=== PATIENT | male | born 1950 | race Caucasian/White ===

== ENCOUNTER → 2023-08-02 12:56 | Outpatient (REF) | payer OTHER, SELFPAY | LOC: MRI 3T 12:56 | PROVIDERS: ATTENDING PHYSICIAN Specialist; FAMILY PHYSICIAN Family Medicine | DX: R97.20 Elevated prostate specific antigen [PSA] (principal) | CPT/HCPCS: 72197; A9575 ==

== ENCOUNTER → 2023-12-18 12:16 | Outpatient (REF) | payer OTHER, SELFPAY ==
[2023-12-18 15:54] LABS: Blood Urea Nitrogen 11 mg/dl (9-20); Calcium 9.6 mg/dl (8.4-10.2); Carbon Dioxide 38 mmol/L (22-30); Chloride 92 mmol/L (98-107); Glucose 119 mg/dl (70-99); Potassium 4.3 mmol/L (3.5-5.1); Sodium 140 mmol/L (135-145); eGFR > 60.00
[2023-12-18 16:30] LABS: CEA 2.05 ng/ml
== END ==
LOC: HWLAB 12:16
PROVIDERS: ATTENDING PHYSICIAN Internal Medicine Cardiovascular Disease; FAMILY PHYSICIAN Family Medicine; OTHER PHYSICIAN Surgery; REFERRING PHYSICIAN Specialist
DX: I50.33 Acute on chronic diastolic (congestive) heart failure (principal); I48.21 Permanent atrial fibrillation; C61 Malignant neoplasm of prostate
CPT/HCPCS: 36415; 80048; 82378; 84153; 84403

== ENCOUNTER → 2023-12-19 12:03 | Outpatient (REF) | payer OTHER, SELFPAY | LOC: HWRAD 12:03 | PROVIDERS: ATTENDING PHYSICIAN Surgery; FAMILY PHYSICIAN Family Medicine | DX: Z85.038 Personal history of other malignant neoplasm of large intestine (principal) | CPT/HCPCS: 71260; 74177; Q9967 ==

== ENCOUNTER 2024-01-09 06:01 | Inpatient (IN) | payer OTHER, SELFPAY ==
[2024-01-09] VITALS (38 sets, daily range): BP systolic 30–138; BP diastolic 57–98; PULSE 2–95
[2024-01-09 06:51] LABS: Hematocrit 34.9 % (39.0-52.0); Hemoglobin 11.3 g/dL (13.0-18.0); Mean Corp Hgb Conc. 32.4 g/dL (33.0-37.0); Mean Corpuscular Hgb 30.5 pg (27.0-31.0); Mean Corpuscular Volume 94.1 fL (80.0-94.0); Mean Platelet Volume 9.5 fL (7.4-10.4); Platelet Count 216 10^3/uL (130-400); Red Blood Cell Count 3.71 10^6/uL (4.70-6.10); Red Cell Dist. Width 13.7 % (11.5-14.5); White Blood Cell Count 7.8 10^3/uL (4.8-10.8)
[2024-01-09] MEDS: TYLENOL 1000 MG PO (07:12)
[2024-01-09] MEDS: DILAUDID 0.25 MG IV ×2 (11:18→12:30)
[2024-01-09 12:12] LABS: B.E. 4.2 mmol/L; HCO3 32.2 mmol/L (21-28); O2 Saturation % 96.6 % (94-98); PCO2 64 mmHg (35-48); PO2 88 mmHg (83-108); pH 7.31 (7.35-7.45)
--- NOTE | 2024-01-09 12:47 | W.PN.CARDCBS ---
Addendum entered and electronically signed by Daniel Puente DO 01/09/24 18:29:
I saw and examined the patient.
The Manager General's note was reviewed and I agree with the note.
Comment:
Plan:
He is s/p robotic assisted left nephrectomy 01/09/2024. Post op in PACU he had hypoxia and was started on Bipap with improvement. He has hx of home O2 2-3 L n/c.
HR and bp are stable
He remains compensated from a cardiac standpoint.
Perm aFib. Check EKG
Check echo as last echo was in 2021.
Check chest xray
Resume anticoagulation once ok with urology
Agree with IMU.
Discussed with hospitalist and PACU nursing including A-line.
Original Note:
Today's Communication / Plan
-
check EKG
check echo
check CXR
wean off bipap as able
resume eliquis when ok from surgical standpoint
Impression / Plan
-
Please refer to office note dated 01/04/24
Primary French Comber: Dr. Rodrigez
Assessment:
L renal mass s/p robotic assisted L nephrectomy 01/09/24
Chronic HFpEF
Pulmonary hypertension
COPD on chronic oxygen dependence
Permanent atrial fibrillation
Chronic OAC with eliquis
HTN
HLD
Chronic anemia
Obesity
history of colon cancer s/p colectomy 10/2021
Depression/anxiety
ECHO 10/2021: Definity contrast was used, EF 50 to 55%, no regional wall motion abnormalities, posterior MAC, trace MR, mildly dilated LA, mild TR, PAP 56 mmHg, severely dilated right atrium, mildly enlarged RV size
Plan:
-Patient underwent robotic assisted left nephrectomy 01/09/2024. Postoperatively in PACU, patient was noted to have desaturations into the 80s even on his baseline 2 to 3 L nasal cannula. He was placed on BiPAP with improvement. Cardiology
consulted for postoperative management
-Wean off BiPAP as able
-Remains in sinus rhythm on review of telemetry. check post op EKG
-Blood pressure stable
-He reports recent weight gain as an outpatient due to poor dietary habits, however denies lower extremity edema or shortness of breath prior to admission. Follow volume status. On Bumex 2 mg p.o. twice daily prior to admission. Check chest x-ray
-Last echo from 2021 as above. Will repeat
-Repeat labs pending. Hemoglobin 11.3 this morning. Outpatient Eliquis on hold. Resume when safe from surgical standpoint.
-May opt to keep a line in place to follow serial ABGs for now
-Continue postoperative care
-Discussed with PACU nursing
Progress Note - French Comber
Subjective
Date of Service: January 09, 2024
no CP. reports breathing improved on BIPAP
Objective
Labs:
Labs
Hgb 11.3 g/dL (13.0-18.0) L 01/09/24 06:37
Hct 34.9 % (39.0-52.0) L 01/09/24 06:37
Plt Count 216 10^3/uL (130-400) 01/09/24 06:37
Vital Signs and I&O:
Vital Signs
Temp Pulse Resp BP Pulse Ox
98.1 F 75 8 117/63 97
01/09/24 10:17 01/09/24 12:45 01/09/24 12:45 01/09/24 12:45 01/09/24 12:45
Vital Signs
Temp Pulse Resp BP Pulse Ox
98.1 F 75 8 117/63 97
01/09/24 10:17 01/09/24 12:45 01/09/24 12:45 01/09/24 12:45 01/09/24 12:45
Intake & Output
1101/08/24 01/09/24 01/10/24
07:59 07:59 07:59 07:59
Output Total 250 / 250
Balance -250 / -250
Physical Exam
Physical Exam
GEN: No distress, awake, lethargic, oriented x3. on bipap. obese
HEENT: supple, anicteric, mmm, eomi
LUNGS: CTA B/L anterolaterally, no wheezes
CV: Reg, S1/S2, no murmur
ABD: soft, BS+, NT/ND
EXT: No cyanosis, clubbing, edema
NEURO: Gross non-focal
SKIN: Warm, pink, dry. No rash
--- NOTE | 2024-01-09 12:58 | W.IMMPOSTOP ---
Surgical Immed Post Op Note
-
Primary Surgeon: Hiro
Pre-op Diagnosis: Left Renal Mass c/w malignancy
Post-op Diagnosis: same
Procedure Performed: Left hand-assisted Laparoscopic Radical Nephrectomy
Anesthesia Type: gen + local
Specimen / Cultures: left kidney + contiguous tissues
Estimated Blood Loss: 175 ml
Complications: none
Operative Findings: large left kidney with lower pole mass; significant induration of perinephric adipose
Tubes: Amado; left retroperitoneal Rj drain to bulb suction
--- NOTE | 2024-01-09 12:58 | CON.HOSP ---
Family Physician
-
Family Physician: Genevieve Prince
Chief Complaint
-
Postoperative hypoxia
History of Present Illness
73-year-old male with a past medical history of colon cancer status post right colectomy, COPD, former smoker, chronic hypoxic respiratory failure on 2-3 L at baseline, CHF, atrial fibrillation on Eliquis, CAD, CKD, hypertension, and type 2 diabetes
who presents with postoperative hypoxia after undergoing a radical left nephrectomy for left renal mass consistent with malignancy. Nursing staff reports that patient was hypoxic postoperatively. He does have a history of known COPD, and requires
2-3 L at baseline at all times. Currently patient is lethargic and on Bipap. He denies shortness of breath, denies chest pain. No coughing, no wheezing. No fever, no nausea, no vomiting. No black or bloody stools. He follows with Dr. Maddy Frost.
Medical History
Past Medical History
Past Medical History: Reports Other
Additional Past Medical History:
Left renal mass consistent with malignancy status post left nephrectomy
Colon cancer status post right colectomy
Chronic hypoxic respiratory failure on 2-3 L
COPD, Former smoker
Chronic HFpEF
H/o improved NICM, EF 35% 2006 and improved to 50-55% by echo 11/25/20
Permanent afib since 2011 despite ablation in 2006
Chronic Eliquis OAC
H/o left Foot wound with maggot infestation 11/2020
CAD with luminal irregularities by cath 12/17/17
CKD 2
H/o NSVT associated with exercise 11/28/17 which prompted cardiac cath 12/17/17
HTN
Anemia
DM 2
Past Surgical History: Reports Other
Additional Past Surgical History:
Left nephrectomy 01/09/24
Right colectomy 11/08/2021
Aortobiliac arteriogram
Hiatal hernia repair
Social History
Tobacco: Former Smoker
Alcohol: None
Drug: Marijuana (CBD gummies)
Family History
Family History: Reviewed & Not Pertinent
Allergies / Home Medications
Allergies reflects when Allergies were last updated in [employer].
Home Medications with original date entered in [employer]
Allergy/Medication List:
Allergies
Allergy/AdvReac Type Severity Reaction Status Date / Time
Penicillins Allergy Unknown Verified 01/09/24 06:31
Home Medications Table - record
�Medication �Instructions �Recorded �Confirmed
albuterol sulfate 90 mcg/actuation 2 puff inhalation R Q6 PRN 11/24/20 01/07/24
aerosol inhaler sob/wheezing
escitalopram oxalate 5 mg tablet 5 mg PO DAILY Mental Health/Anxiety 11/24/20 01/07/24
fluticasone fur. 100 mcg-umeclid 1 puff inhalation R DAILY 11/24/20 01/07/24
62.5 mcg-vilant 25 mcg Lung/breathing issues
inhalat.powder (Trelegy Ellipta)
metoprolol succinate 100 mg 100 mg PO QPM Heart 11/24/20 01/09/24
tablet,extended release 24 hr disease/condition
atorvastatin 20 mg tablet 20 mg PO QPM High cholesterol 11/01/21 01/09/24
losartan 25 mg tablet 25 mg PO QPM Blood pressure 11/01/21 01/09/24
trazodone 100 mg tablet 150 mg PO HS Mental Health/Anxiety 11/01/21 01/09/24
bumetanide 2 mg tablet 2 mg PO BID@0800,1600 #60 tabs 11/14/21 01/09/24
pantoprazole 40 mg tablet,delayed 40 mg PO DAILY #30 tabs 11/14/21 01/07/24
release
potassium chloride 20 mEq 20 meq PO BID #30 tabs 11/14/21 01/09/24
tablet,extended
release(part/cryst) (Klor-Con M)
Cbd Gummies 1 gummy PO PRN PRN pain 01/07/24 01/09/24
acetaminophen 325 mg tablet 650 mg PO Q4H PRN pain 01/07/24 01/07/24
(Tylenol)
apixaban 5 mg tablet (Eliquis) 5 mg PO BID 01/07/24 01/07/24
melatonin 10 mg tablet 10 mg PO HS Sleep 01/07/24 01/09/24
diltiazem HCl 120 mg 120 mg PO QPM 01/08/24 01/09/24
capsule,extended release 24 hr
docusate sodium 100 mg capsule 100 mg PO BID 01/08/24 01/09/24
(Colace)
tramadol 50 mg tablet 50 mg PO TID PRN severe pain #10 01/09/24
tabs
Review of Systems
-
A 12 point Review of Systems was completed except as noted: Yes
Physical Exam
Vital Signs
Vital Signs
Temp Pulse Resp BP Pulse Ox
98.1 F 75 8 117/63 97
01/09/24 10:17 01/09/24 12:45 01/09/24 12:45 01/09/24 12:45 01/09/24 12:45
Physical Exam
General: No Apparent Distress and Other (Obese, lethargic)
HEENT: Normocephalic, Anicteric and Moist Mucous Membranes
Respiratory: Other (Diminished breath sounds in all lung nichols, no wheezing noted)
Cardiac: Irregular Rhythm
GI: Soft, Non Tender and Normal Bowel Sounds
Musculoskeletal: No Clubbing and No Cyanosis
Neuro: Other (Lethargic, but arousable)
Laboratory Results
-
pH 7.31 (7.35-7.45) L 01/09/24 11:59
pCO2 64 mmHg (35-48) H 01/09/24 11:59
pO2 88 mmHg (83-108) 01/09/24 11:59
HCO3 32.2 mmol/L (21-28) H 01/09/24 11:59
Impression / Plan
-
HPI: 73-year-old male with a past medical history of colon cancer status post right colectomy, COPD, former smoker, chronic hypoxic respiratory failure on 2-3 L at baseline, CHF, atrial fibrillation on Eliquis, CAD, CKD, hypertension, and type 2
diabetes who presents with postoperative hypoxia after undergoing a radical left nephrectomy for left renal mass consistent with malignancy. Nursing staff reports that patient was hypoxic postoperatively. He does have a history of known COPD, and
requires 2-3 L at baseline at all times. Currently patient is lethargic and on Bipap. He denies shortness of breath, denies chest pain. No coughing, no wheezing. No fever, no nausea, no vomiting. No black or bloody stools. He follows with
Castañeda Santosh.
#Acute on chronic hypoxic and hypercapnic respiratory failure
#COPD
#Probable restrictive lung disease
Suspect secondary to anesthesia, restrictive lung disease, with baseline COPD
Patient requires 2 to 3 L at baseline
Consult pulmonology, continue BiPAP, repeat ABGs in the morning
Patient not currently wheezing, defer to pulmonology regarding if steroids are indicated
#Left renal mass consistent with malignancy status post left nephrectomy 01/09/24
Plan of care as per primary, pain control, PT/OT, laxatives
Follow-up on pathology
#Chronic HFpEF
Patient Received 2 L of IV Fluids in the OR Today, will cap IVFs
Cardiology consulted, continue Bumex 2 mg p.o. twice daily
#Permanent afib since 2011 despite ablation in 2006
Cardiology consulted, continue diltiazem and metoprolol for rate control
Resume Eliquis when cleared by primary
#CAD
Continue statin, metoprolol, losartan
#Benign essential hypertension
Continue metoprolol, losartan, diltiazem
#Colon cancer status post right colectomy 11/09/2023
#History of diabetes
Check hemoglobin A1c
#GERD
Continue PPI
#Anxiety/depression
Continue SSRI, trazodone
#Obesity due to excess calories
Affects all aspects of care
DVT prophylaxis�SCDs
Full code
Discussed w/ pulm, cards, & nursing
Total time spent to see the patient on the floor, examine the patient, review data and lab results, discuss treatment plan with patient, nursing staff around 80 minutes.
[2024-01-09] MEDS: DILAUDID 0.5 MG IV ×2 (13:10→16:16)
[2024-01-09 13:43] LABS: % Basophils 0.1 % (0-2); % Immature Granulocytes 0.4 % (0-0.5); % Lymphocytes 1.9 % (20.5-51.1); % Monocytes 3.8 % (1.7-9.3); % Neutrophils 93.8 % (42.2-75.2); Absolute Immature Granulocytes 0.1 10^3/uL (0-0.05); Absolute Lymphocytes 0.3 10^3/uL (1.2-3.4); Absolute Monocytes 0.6 10^3/uL (0.1-0.6); Absolute Neutrophils 15.7 10^3/uL (1.4-6.5); Hematocrit 36.5 % (39.0-52.0); Hemoglobin 11.7 g/dL (13.0-18.0); Mean Corp Hgb Conc. 32.1 g/dL (33.0-37.0); Mean Corpuscular Hgb 30.4 pg (27.0-31.0); Mean Corpuscular Volume 94.8 fL (80.0-94.0); Mean Platelet Volume 9.4 fL (7.4-10.4); Nucleated Red Blood Cells % 0 % (-); Platelet Count 223 10^3/uL (130-400); Red Blood Cell Count 3.85 10^6/uL (4.70-6.10); Red Cell Dist. Width 13.6 % (11.5-14.5); White Blood Cell Count 16.7 10^3/uL (4.8-10.8)
[2024-01-09 13:57] LABS: Lactic Acid 0.7 mmol/L (0.7-2.0)
[2024-01-09 13:59] LABS: ALT (SGPT) 16 U/L (0-50); AST (SGOT) 21 U/L (17-59); Albumin 3.8 g/dl (3.5-5.0); Alkaline Phosphatase 79 U/L (38-126); Blood Urea Nitrogen 22 mg/dl (9-20); Calcium 8.3 mg/dl (8.4-10.2); Carbon Dioxide 35 mmol/L (22-30); Chloride 96 mmol/L (98-107); Estimated Creatinine Clearance 97 ml/min; Glucose 165 mg/dl (70-99); Sodium 139 mmol/L (135-145); Total Bilirubin 0.8 mg/dl (0.2-1.3); Total Protein 6.6 g/dl (6.3-8.2); eGFR > 60.00
--- NOTE | 2024-01-09 15:20 | SUR.PHASEI ---
pacu addendum - patient arrived in pacu on 10l simple mask - sats 85%, does not respond to voice - increase to 15l/m - positioned in high fowlers - stimulated to breath. history of O2 use at home and weakness on arrival to OR - could not transfer
self or hold head upright. Dr Mae called - and respiratory called with Bipap. With Bipap - patient's sat improved. Remains lethargic. questioned need for abg's, labs. Not at this time.
at 1120 - noted sudden drainage on left - filling JAXON and and drainage around back and saturating blue pad. dressing reiforced - Dr Bosch called - no new orders at this time. Dr Mae and Dr Bosch updated on resp status. Need for Bipap
- consults ordered for disposition of patient post pacu. At 1400 - await IMU bed. [place] discontinued at 1500. Sleeps unless stimulated to wake, then asks for pain med and mouth care.
--- NOTE | 2024-01-09 15:22 | CON.PUL ---
Consultation
Consultation Request
Date/Time Consultation Requested: 01/09/24
Date/Time Consultation Performed: 01/09/24
Performing Provider: Santosh
Reason for Consultation: Hypercarbia
Medical History
-
History of Present Illness:
Patient is a 73-year-old male with previous history of severe COPD, chronic hypoxic respiratory failure on O2, chronic A-fib, hypertension, diastolic heart failure presenting for elective nephrectomy for history of left renal mass. Underwent
procedure and postoperatively developed hypoxemia for which she was placed on BiPAP. ABG obtained indicating mild acute respiratory acidosis. He has evidence of obesity hypoventilation syndrome. He was told 2 years ago that he needed a sleep
study but did not follow-up. He is currently in PACU on BiPAP and tolerating device well.
Past Medical History
Past Medical History: Other (see list below)
Social History
Tobacco: Former Smoker
Alcohol: None
Drug: None
Family History
Family History: Reviewed & Not Pertinent
Allergies / Home Medications
Allergies
Allergy/AdvReac Type Severity Reaction Status Date / Time
Penicillins Allergy Unknown Verified 01/09/24 06:31
Home Medications
�Medication �Instructions �Recorded �Confirmed �Last Taken �Type
albuterol sulfate 90 mcg/actuation 2 puff inhalation R Q6 PRN 11/24/20 01/07/24 Unknown History
aerosol inhaler sob/wheezing
escitalopram oxalate 5 mg tablet 5 mg PO DAILY Mental Health/Anxiety 11/24/20 01/07/24 01/09/24 03:30 History
fluticasone fur. 100 mcg-umeclid 1 puff inhalation R DAILY 11/24/20 01/07/24 01/09/24 03:30 History
62.5 mcg-vilant 25 mcg Lung/breathing issues
inhalat.powder (Trelegy Ellipta)
metoprolol succinate 100 mg 100 mg PO QPM Heart 11/24/20 01/09/24 01/08/24 20:00 History
tablet,extended release 24 hr disease/condition
atorvastatin 20 mg tablet 20 mg PO QPM High cholesterol 11/01/21 01/09/24 01/08/24 18:00 History
losartan 25 mg tablet 25 mg PO QPM Blood pressure 11/01/21 01/09/24 01/08/24 20:00 History
trazodone 100 mg tablet 150 mg PO HS Mental Health/Anxiety 11/01/21 01/09/24 01/08/24 20:00 History
bumetanide 2 mg tablet 2 mg PO BID@0800,1600 #60 tabs 11/14/21 01/09/24 01/08/24 18:00 Rx
pantoprazole 40 mg tablet,delayed 40 mg PO DAILY #30 tabs 11/14/21 01/07/24 01/09/24 03:30 Rx
release
potassium chloride 20 mEq 20 meq PO BID #30 tabs 11/14/21 01/09/24 01/08/24 18:00 Rx
tablet,extended
release(part/cryst) (Klor-Con M)
Cbd Gummies 1 gummy PO PRN PRN pain 01/07/24 01/09/24 01/08/24 20:00 History
acetaminophen 325 mg tablet 650 mg PO Q4H PRN pain 01/07/24 01/07/24 Unknown History
(Tylenol)
apixaban 5 mg tablet (Eliquis) 5 mg PO BID 01/07/24 01/07/24 01/06/24 20:00 History
melatonin 10 mg tablet 10 mg PO HS Sleep 01/07/24 01/09/24 01/08/24 20:00 History
diltiazem HCl 120 mg 120 mg PO QPM 01/08/24 01/09/24 01/08/24 20:00 History
capsule,extended release 24 hr
docusate sodium 100 mg capsule 100 mg PO BID 01/08/24 01/09/24 01/08/24 18:00 History
(Colace)
tramadol 50 mg tablet 50 mg PO TID PRN severe pain #10 01/09/24 Unknown Rx
tabs
Review of Systems
-
History Source: Patient
All other systems: Negative unless noted
Vitals / Labs / Diagnostic Testing
Vital Signs
Temp Pulse Resp BP Pulse Ox
97 F 97 24 116/75 97
01/09/24 14:00 01/09/24 15:15 01/09/24 15:15 01/09/24 15:00 01/09/24 15:15
Lab Data
01/09/24 16:00
01/09/24 16:00
Laboratory Results
01/09/24
11:59
pH 7.31 L
pCO2 64 H
pO2 88
HCO3 32.2 H
O2 Delivery Level
Diagnostic Testing:
Physical Exam
-
HEENT: Normocephalic, Anicteric and Moist Mucous Membranes
Cardiovascular: S1/S2 and Regular Rhythm
Respiratory: Clear and Non-Labored Respirations
GI: Soft, Non Distended and Non Tender
Neurology: Awake, Alert, Oriented and No Motor Deficits
Skin: Warm, Dry and Good Color
General: Comfortable and Other (NAD)
Assessment
-
Patient is a 73-year-old male with previous history of severe COPD, chronic hypoxic respiratory failure on O2, chronic A-fib, hypertension, diastolic heart failure presenting for elective nephrectomy for history of left renal mass. Underwent
procedure and postoperatively developed hypoxemia for which she was placed on BiPAP. ABG obtained indicating mild acute respiratory acidosis. He has evidence of obesity hypoventilation syndrome. He was told 2 years ago that he needed a sleep
study but did not follow-up. He is currently in PACU on BiPAP and tolerating device well.
Acute on chronic hypoxic/hypercarbic respiratory failure
Suspect PRISCILLA/OHS
Likely with postoperative atelectasis
Renal mass status post elective nephrectomy 01/09/24
Leukocytosis
Hyperglycemia
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
Prostate Cancer
Anxiety
HTN
Depression
Chronic Anemia
Severe COPD/bronchitis
Currently on Trelegy, 12/2023-FEV1 0.95L 29%, FVC 1.47L 33%, ratio 65.
08/31/20 from OSH- FEV1 32%, FVC 40%, ratio 63. TLC 53%, DLCO 60%
Moderately severe RLD
Diastolic-CHF
A-Fib
PAD s/p Aorto-biliac arteriogram, LLE arteriogram 11/30/20
Osteoporosis
Rheumatoid arthritis
Colon cancer s/p Robotic Right Colectomy
Hiatal hernia repair
L knee injections x3
R knee injection
Left Carpal tunnel release 10/27/22
Suspected PRISCILLA, supposed to obtain sleep study/did not follow up
Obesity BMI 38
Plan
Seen in PACU
He is chronically on oxygen, notably on 2 L with exertion
He is currently placed on 8 L postoperatively, through BiPAP
This is likely due to pulmonary insufficiency/atelectasis post procedure
We will need to do IS, ambulation and wean off oxygen
Suspect PRISCILLA, was instructed to get sleep study 2 years prior but did not follow up
ABG showing pH 7.31/CO2 64 indicating OHS
Can continue BIPAP overnight
Repeat ABG in AM
We discussed need for OP testing and set up
Prior history of lung disease is noted including severe COPD on Trelegy
Prior PFTs reviewed indicating FEV1 of 29%
Resume home inhalers
He also has comorbid history of restrictive lung disease, diastolic heart failure
CXR/CT obtained indicating no acute findings, bibasilar atelectasis is present
Other imaging reviewed in past as well
Prior ECHO results are reviewed indicating stable function with moderate pulmonary hypertension
This has not been repeated since 2021
Cautious fluid administration, resumption of home diuretic
If stalling on his oxygen weaning, may consider cardiology input
Check proBNP
Weight loss measures recommended
Obesity likely contributing to respiratory symptoms
Will need outpatient pulmonary evaluation in our office at discharge
We will follow
Diagnostic Data
Chest X-Ray: 01/09/24-Bibasilar opacities which may represent atelectasis or potentially postprocedural change. No pneumothorax.
CT Scan: CAP 12/19/23- 1. Post colonic resection. No bowel obstruction. As above, fat attenuation structure in anterior right abdomen with surrounding soft tissue attenuation probably old fat necrosis or chronic partial omental infarct related to
previous surgery.
2. Heterogeneously enhancing left renal mass measuring up to 6.5 cm in diameter, highly suspicious for renal cell carcinoma. There are some mildly enlarged retroperitoneal lymph nodes as above, metastatic involvement cannot be excluded.
3. Elevation left hemidiaphragm with adjacent atelectatic change. Trace left pleural effusion.
4. Dilation of the main pulmonary artery as seen previously, question pulmonary hypertension.
5. Mild irregularity of the hepatic capsular contour and enlarged left lobe, early change of cirrhosis is a differential consideration. No specific findings suggestive of portal hypertension.
6. Cholelithiasis.
11/05/21- 1. Focal area of thickening involving the transverse colon, likely corresponding to the patient's known transverse colon mass. No mesenteric lymphadenopathy is appreciated.
2. No evidence of hepatic metastasis.
3. Groundglass nodule at the right lung apex, measuring 7 mm in diameter. No additional lung nodules are appreciated. This nodule is indeterminate, and should be followed with imaging.
4. Prominence of the main pulmonary trunk, suggestive of pulmonary arterial hypertension in the correct clinical setting.
5. Mild cardiomegaly. Moderate coronary arterial calcification. Please correlate with symptoms of and risk factors for coronary artery disease, with further workup as clinically appropriate.
6. Cholelithiasis without evidence of acute cholecystitis.
Echo: 11/07/21-Normal left ventricular size, wall thickness and systolic function. No regional wall motion abnormalities are seen. LV ejection fraction is 50-55% by Chandler's method of discs. Diastolic function indeterminate due to atrial
fibrillation. Definity contrast was used. Mitral valve opens normally. Posterior mitral annular calcification. Trace mitral regurgitation. Mildly dilated left atrium. Tricuspid valve opens normally. Mild tricuspid regurgitation. Estimated pulmonary
artery pressure of 56 mmHg assuming a right atrial pressure of 8 mmHg.Severely dilated right atrium. Mildly enlarged right ventricular size. Normal right ventricular systolic function. Since echocardiogram November 2020 which was reviewed, there is
no significant change.
PFT's 12/2023-- FEV1 0.95L 29%, FVC 1.47L 33%, ratio 65.
08/31/20 from OSH- FEV1 32%, FVC 40%, ratio 63. TLC 53%, DLCO 60%
6MWT 12/06/23- 6 minute walk test performed and reconfirmed his exertional hypoxemia. Desaturated to 85% after [address] and titrated to 2 L and maintained an oxygen saturation of 93-94%. Exertional tachycardia noted at 150-160 bpm.
Reports and relevant images were personally reviewed.
Total time spent on this consultation __76__ includes review of history, physical exam, medications, laboratory data, personal review of imaging, extensive review of outpatient records, discussion with care team and respiratory therapy.
--- NOTE | 2024-01-09 16:19 | SUR.PHASEI ---
patient sleeps unless disturbed, vss, wean BIPAP o2 to 4l/m. patient reluctant to move or have any activity. Strongly encouraged to move and work on activity and deep breathing. Medicated with Dilaudid 0.5mg IV for pain - sats do drop after
dilaudid - patient cautioned on use of narcotics. Patient states with rolled fist ' I would like to pop you.' Again explained need to NOT be sedentary
[2024-01-09] MEDS: BUMEX 2 MG PO (16:39)
--- NOTE | 2024-01-09 16:56 | SUR.PHASEI ---
off bipap to take meds, and sat drop to 82%, resumed - increase O2 briefly and now back to 4lm with bipap 15/2 and sats good, dressing continues to saturate at intervals with continuous drainage from JAXON.
--- NOTE | 2024-01-09 17:54 | SUR.PHASEI ---
transfering patient to IMU - with movement abd dressing saturated x2 again and drainage on blue pad - JAXON drain filling x2 with serosang. reinforced dressings removed - and new ABD's placed to reinforce. Jaxon emptied and compressed.
[2024-01-09 18:06] LABS: NT-proBNP 1140 pg/ml
[2024-01-09] MEDS: LIPITOR 20 MG PO (18:07)
[2024-01-09] MEDS: CARDIZEM CD 120 MG PO (18:07)
[2024-01-09] MEDS: TOPROL XL 100 MG PO (18:08)
[2024-01-09] MEDS: COZAAR 25 MG PO (18:08)
--- NOTE | 2024-01-09 18:32 | PTCARENOTE ---
Received patient on admission from PACU via bed with bipap in use; transferred to new bed x4 assist. RT accompanied and changed patient to 6L n/c once in new bed; she then weaned to current 4L n/c with POx 96%. Lungs diminished t/o; no c/o SOB.
Afib on monitor.
CURT emptied on arrival for 80ml blood; also had moderate amount of bloody drainage around curt site leaking onto bed. Dressing changed by [employer]ANCIAL [employer] OFFICER on arrival. Per FINANCIAL AIDS OFFICER, patient with drainage at curt site that was reinforced and total of 450ml emptied
while still in PACU. LUQ small abdominal dressing with drainage shadowing beyond marked area; new area outlined by this RN. FINANCIAL [employer] OFFICER notified Dr Bosch and Dr Page of continued drainage. She also notified Dr Varghese, forwarding this RN the
response: 'don't suspect any major bleeding but he had a massive tumor. can plan to reinforce dressing and drain as needed.' H&H order taken by FINANCIAL [employer] OFFICER and brought to IMU. A total of 170ml emptied on this unit so far. BP 127/73; HR 114. See MAR for
med administration.
[2024-01-09] MEDS: SYMBICORT 80/4.5 MCG INHALER INH (19:42)
[2024-01-09] MEDS: KCL 20 MEQ PO (20:30)
[2024-01-09] MEDS: COLACE 100 MG PO (20:31)
[2024-01-09] MEDS: SENOKOT-S 2 TABLET PO (20:31)
[2024-01-09 20:53] LABS: Hematocrit 40.3 % (39.0-52.0); Hemoglobin 12.7 g/dL (13.0-18.0)
[2024-01-09] MEDS: PERCOCET 5/325 2 TABLET PO (20:57)
[2024-01-09] MEDS: MELATONIN 10 MG PO (20:57)
[2024-01-09] MEDS: DESYREL 150 MG PO (21:10)
[2024-01-10] VITALS (22 sets, daily range): BP systolic 72–129; BP diastolic 49–91; PULSE 3–96
--- NOTE | 2024-01-10 02:06 | PTCARENOTE ---
Assumed care of patient overnight, received report from tin RN. Pt is currently on 4L O2 NC. O2 sat 93%. Lungs are diminished and coarse. Pt denies SOB. A-fib on tele. Surgical site dressing remains from [employer]IC[employer]CH [employer]PER[employer]. Added an ABD pad to under the
abdomen/abdominal fold due to moderate amount of drainage, no further drainage noted at this time. Left JAXON drain putting out large amounts of serosanguineous to sanguineus drainage. >300ml output thus far. Pt complained of 7/10 pain from the left
lower quadrant of abdomen and left upper quadrant. Administered ordered Percocet see MAR. Pt is now sleeping and appears to be resting comfortably in bed. Pt rings appropriately and call silva is within reach.
[2024-01-10] MEDS: PERCOCET 5/325 2 TABLET PO ×4 (04:16→23:28)
[2024-01-10 04:23] LABS: Mean Corp Hgb Conc. 32.4 g/dL (33.0-37.0); Mean Corpuscular Hgb 30.8 pg (27.0-31.0); Mean Corpuscular Volume 94.9 fL (80.0-94.0); Mean Platelet Volume 9.4 fL (7.4-10.4); Platelet Count 249 10^3/uL (130-400); Red Cell Dist. Width 13.7 % (11.5-14.5)
[2024-01-10 04:47] LABS: Blood Urea Nitrogen 24 mg/dl (9-20); Calcium 8.4 mg/dl (8.4-10.2); Carbon Dioxide 33 mmol/L (22-30); Chloride 95 mmol/L (98-107); Estimated Creatinine Clearance 73 ml/min; Glucose 193 mg/dl (70-99); Potassium 4.7 mmol/L (3.5-5.1); Sodium 138 mmol/L (135-145); eGFR > 60.00
[2024-01-10 05:03] LABS: B.E. 7.8 mmol/L; HCO3 34.5 mmol/L (21-28); O2 Saturation % 96.9 % (94-98); PCO2 57 mmHg (35-48); PO2 76 mmHg (83-108); pH 7.39 (7.35-7.45)
[2024-01-10 05:15] LABS: O2 Therapy Bipap
[2024-01-10] MEDS: SPIRIVA RESPIMAT 2.5 MCG 2 PUFF INH (07:25)
[2024-01-10] MEDS: SYMBICORT 80/4.5 MCG INHALER 2 PUFF INH ×2 (07:25→19:34)
--- NOTE | 2024-01-10 08:12 | W.PN.CARDCBS ---
Today's Communication / Plan
-
Improved off BiPAP, pulm evaluating. He has been lost to follow up with pulm regarding possible PRISCILLA.
Remains in perm AFib with stable HR and BP.
EKG is stable.
Cont outpt Bumex.
Chest xray Jan 08: bibasilar opacities which may represent atelectasis
Echo pending. Echo from Oct 2021 EF was preserved.
Impression / Plan
-
Please refer to office note dated 01/04/24
Primary Filling Technician: Dr. Rodrigez
Impression:
L renal mass s/p robotic assisted L nephrectomy 01/09/24
Chronic HFpEF
Pulmonary hypertension
COPD on chronic oxygen dependence
Permanent atrial fibrillation
Chronic OAC with eliquis
HTN
HLD
Chronic anemia
Obesity
history of colon cancer s/p colectomy 10/2021
Depression/anxiety
ECHO 10/2021: Definity contrast was used, EF 50 to 55%, no regional wall motion abnormalities, posterior MAC, trace MR, mildly dilated LA, mild TR, PAP 56 mmHg, severely dilated right atrium, mildly enlarged RV size
Plan:
-Patient underwent robotic assisted left nephrectomy 01/09/2024. Postoperatively in PACU, patient was noted to have desaturations into the 80s even on his baseline 2 to 3 L nasal cannula. He was placed on BiPAP with improvement. Cardiology
consulted for postoperative management
Improved off BiPAP, pulm evaluating. He has been lost to follow up with pulm regarding possible PRISCILLA.
Remains in perm AFib with stable HR and BP.
EKG is stable.
Cont outpt Bumex.
Chest xray Jan 08: bibasilar opacities which may represent atelectasis
Echo pending. Echo from Oct 2021 EF was preserved.
Cont post op care. H/H stable.
Progress Note - Filling Technician
Subjective
Date of Service: January 10, 2024
Pt seen and examined. No cp or dyspnea.
Objective
Labs:
01/10/24 04:12
01/10/24 04:12
Labs
Hgb 12.0 g/dL (13.0-18.0) L 01/10/24 04:12
Hct 37.0 % (39.0-52.0) L 01/10/24 04:12
Plt Count 249 10^3/uL (130-400) 01/10/24 04:12
Sodium 138 mmol/L (135-145) 01/10/24 04:12
Potassium 4.7 mmol/L (3.5-5.1) 01/10/24 04:12
BUN 24 mg/dl (9-20) H 01/10/24 04:12
Creatinine 1.2 mg/dL (0.7-1.3) 01/10/24 04:12
Glucose 193 mg/dl (70-99) H 01/10/24 04:12
Vital Signs and I&O:
Vital Signs
Temp Pulse Resp BP Pulse Ox
98.1 F 100 17 129/65 95
01/10/24 04:32 01/10/24 07:28 01/10/24 07:28 01/10/24 06:00 01/10/24 07:28
Vital Signs
Temp Pulse Resp BP Pulse Ox
98.1 F 100 17 129/65 95
01/10/24 04:32 01/10/24 07:28 01/10/24 07:28 01/10/24 06:00 01/10/24 07:28
Intake & Output
01/08/24 01/09/24 01/10/24 01/11/24
06:59 06:59 06:59 06:59
Intake Total 300 / 300
Output Total 2525 / 2525
Balance -2225 / -2225
Physical Exam
Physical Exam
General: No acute distress, AAOX3
Neck: Negative JVD
Heart: Irregularly irregular, Negative S3 positive S1/S2, Negative S4, No murmur
Lungs: CTA b/l, negative wheezes/rales/rhonchi
Abd: Morbid obesity. Positive BS, NT/ND, neg rebound/rigidity/guarding
Ext: Negative cyanosis/clubbing/edema
Neuro: nonfocal
[2024-01-10] MEDS: LEXAPRO 5 MG PO (08:50)
[2024-01-10] MEDS: SENOKOT-S 2 TABLET PO ×2 (08:50→20:20)
[2024-01-10] MEDS: KCL 20 MEQ PO (08:51)
[2024-01-10] MEDS: PROTONIX 40 MG PO (08:51)
[2024-01-10] MEDS: BUMEX 2 MG PO (08:51)
[2024-01-10] MEDS: COLACE 100 MG PO ×2 (08:51→20:20)
[2024-01-10] MEDS: MIRALAX 17 GRAMS PO (08:51)
--- NOTE | 2024-01-10 09:16 | W.PN.PUL3 ---
Today's Communication / Plan
-
doing well on BIPAP, repeat ABG improved
will arrange OP sleep study and set up
wean o2 to baseline
resume home inhalers
encourage OOB as tolerated
further postop management per team
discharge planning per team
Assessment
-
Patient is a 73-year-old male with previous history of severe COPD, chronic hypoxic respiratory failure on O2, chronic A-fib, hypertension, diastolic heart failure presenting for elective nephrectomy for history of left renal mass. Underwent
procedure and postoperatively developed hypoxemia for which she was placed on BiPAP. ABG obtained indicating mild acute respiratory acidosis. He has evidence of obesity hypoventilation syndrome. He was told 2 years ago that he needed a sleep
study but did not follow-up. He is currently in PACU on BiPAP and tolerating device well.
Acute on chronic hypoxic/hypercarbic respiratory failure
Suspect PRISCILLA/OHS
Likely with postoperative atelectasis
Renal mass status post elective nephrectomy 01/09/24
Leukocytosis
Hyperglycemia
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
Prostate Cancer
Anxiety
HTN
Depression
Chronic Anemia
Severe COPD/bronchitis
Currently on Trelegy, 12/2023-FEV1 0.95L 29%, FVC 1.47L 33%, ratio 65.
08/31/20 from OSH- FEV1 32%, FVC 40%, ratio 63. TLC 53%, DLCO 60%
Moderately severe RLD
Diastolic-CHF
A-Fib
PAD s/p Aorto-biliac arteriogram, LLE arteriogram 11/30/20
Osteoporosis
Rheumatoid arthritis
Colon cancer s/p Robotic Right Colectomy
Hiatal hernia repair
L knee injections x3
R knee injection
Left Carpal tunnel release 10/27/22
Suspected PRISCILLA, supposed to obtain sleep study/did not follow up
Obesity BMI 38
Plan
He is chronically on oxygen, notably on 2 L with exertion
He is currently placed on 8 L postoperatively, through BiPAP--wean down as tolerated
This is likely due to pulmonary insufficiency/atelectasis post procedure
Continue IS, ambulation and wean off oxygen
Suspect PRISCILLA, was instructed to get sleep study 2 years prior but did not follow up
ABG showing pH 7.31/CO2 64 indicating OHS
Can continue BIPAP overnight
Repeat ABG in AM improved, can repeat PRN
We discussed need for OP testing and set up--this will be arranged
Prior history of lung disease is noted including severe COPD on Trelegy
Prior PFTs reviewed indicating FEV1 of 29%
Resume home inhalers
He also has comorbid history of restrictive lung disease, diastolic heart failure
CXR/CT obtained indicating no acute findings, bibasilar atelectasis is present
Other imaging reviewed in past as well
Prior ECHO results are reviewed indicating stable function with moderate pulmonary hypertension
This has not been repeated since 2021
Cautious fluid administration, resumption of home diuretic
If stalling on his oxygen weaning, may consider cardiology input
proBNP--1140
Weight loss measures recommended
Obesity likely contributing to respiratory symptoms
Will need outpatient pulmonary evaluation in our office at discharge
D/c planning per team
Diagnostic Data
Chest X-Ray: 01/09/24-Bibasilar opacities which may represent atelectasis or potentially postprocedural change. No pneumothorax.
CT Scan: CAP 12/19/23- 1. Post colonic resection. No bowel obstruction. As above, fat attenuation structure in anterior right abdomen with surrounding soft tissue attenuation probably old fat necrosis or chronic partial omental infarct related to
previous surgery.
2. Heterogeneously enhancing left renal mass measuring up to 6.5 cm in diameter, highly suspicious for renal cell carcinoma. There are some mildly enlarged retroperitoneal lymph nodes as above, metastatic involvement cannot be excluded.
3. Elevation left hemidiaphragm with adjacent atelectatic change. Trace left pleural effusion.
4. Dilation of the main pulmonary artery as seen previously, question pulmonary hypertension.
5. Mild irregularity of the hepatic capsular contour and enlarged left lobe, early change of cirrhosis is a differential consideration. No specific findings suggestive of portal hypertension.
6. Cholelithiasis.
11/05/21- 1. Focal area of thickening involving the transverse colon, likely corresponding to the patient's known transverse colon mass. No mesenteric lymphadenopathy is appreciated.
2. No evidence of hepatic metastasis.
3. Groundglass nodule at the right lung apex, measuring 7 mm in diameter. No additional lung nodules are appreciated. This nodule is indeterminate, and should be followed with imaging.
4. Prominence of the main pulmonary trunk, suggestive of pulmonary arterial hypertension in the correct clinical setting.
5. Mild cardiomegaly. Moderate coronary arterial calcification. Please correlate with symptoms of and risk factors for coronary artery disease, with further workup as clinically appropriate.
6. Cholelithiasis without evidence of acute cholecystitis.
Echo: 11/07/21-Normal left ventricular size, wall thickness and systolic function. No regional wall motion abnormalities are seen. LV ejection fraction is 50-55% by Chandler's method of discs. Diastolic function indeterminate due to atrial
fibrillation. Definity contrast was used. Mitral valve opens normally. Posterior mitral annular calcification. Trace mitral regurgitation. Mildly dilated left atrium. Tricuspid valve opens normally. Mild tricuspid regurgitation. Estimated pulmonary
artery pressure of 56 mmHg assuming a right atrial pressure of 8 mmHg.Severely dilated right atrium. Mildly enlarged right ventricular size. Normal right ventricular systolic function. Since echocardiogram November 2020 which was reviewed, there is
no significant change.
PFT's 12/2023-- FEV1 0.95L 29%, FVC 1.47L 33%, ratio 65.
08/31/20 from OSH- FEV1 32%, FVC 40%, ratio 63. TLC 53%, DLCO 60%
6MWT 12/06/23- 6 minute walk test performed and reconfirmed his exertional hypoxemia. Desaturated to 85% after [address] and titrated to 2 L and maintained an oxygen saturation of 93-94%. Exertional tachycardia noted at 150-160 bpm.
Reports and relevant images were personally reviewed.
Total time spent on this encounter __51__ minutes which includes review of history, physical exam, medications, laboratory data, personal review of imaging, extensive review of outpatient records, discussion with care team and respiratory therapy.
Subjective Data
-
Date of Service:
Date of Service: January 10, 2024
Chief Complaint: Pulmonary Follow Up
Subjective:
No events ON, tolerated BIPAP
No new complaints
Objective Data
Data Reviewed
Vital Signs / I&O / Oxygen:
Vital Signs
Temp Pulse Resp BP Pulse Ox
98.6 F 88 13 113/66 96
01/10/24 07:29 01/10/24 08:51 01/10/24 08:00 01/10/24 08:51 01/10/24 08:00
Intake and Output
01/09/24 01/10/24 01/11/24
06:59 06:59 06:59
Intake Total 300 / 300
Output Total 2525 / 2525
Balance -2225 / -2225
SaO2 96
Nasal Cannula flow liters per 4
minute
Physical Exam
General: Comfortable and Other (NAD)
HEENT: Normocephalic, Anicteric and Moist Mucous Membranes
Cardiovascular: S1-S2, Regular Rhythm and Peripheral Edema (discoloration noted)
Respiratory: Clear and Non-Labored Respirations
GI: Soft, Non Distended and Non Tender
Neurology: Awake, Alert, Oriented and No Motor Deficits
Skin: Warm, Dry and Good Color
Labs/Micro/Reports
Lab Data
01/10/24 04:12
01/10/24 04:12
Laboratory Results
01/09/24 01/10/24
11:59 04:56
pH 7.31 L 7.39
pCO2 64 H 57 H
pO2 88 76 L
HCO3 32.2 H 34.5 H
O2 Delivery Level Bipap
--- NOTE | 2024-01-10 09:47 | W.PN.URO.CBU ---
Today's Communication / Plan
-
OOB
d/c Amado
appreciated Hospitalists' and Cardiologists' support
Assessment / Plan
-
stable
per RN, RP drain's recorded volumes are incorrect -- 'it was only 50 cc last shift . . . its been going down'
Diagnosis
-
Date of Service: January 10, 2024
-
Patient Diagnosis: Left Renal Mass s/p Hand-assisted laparoscopic radical nephrectomy
Post Op Day: 1
Subjective
-
'I feel good doc'
expected degree of abdominal pain
Objective
-
Vital Signs
Temp Pulse Resp BP Pulse Ox
98.6 F 88 13 113/66 96
01/10/24 07:29 01/10/24 08:51 01/10/24 08:00 01/10/24 08:51 01/10/24 08:00
Intake and Output
01/09/24 01/10/24 01/11/24
06:59 06:59 06:59
Intake Total 300 / 300
Output Total 2525 / 2525
Balance -2225 / -2225
Intake:
Oral fluids 100 / 100
IV fluids (Total) 200 / 200
normosol 200 / 200
Output:
Drain Output (Total) 1240 / 1240
Left Lower Abdomen Sharif- 1240 / 1240
Fowler
Urine, Amado 1285 / 1285
Laboratory Results
01/10/24 04:12
01/10/24 04:12
Physical Exam
-
General - well developed, well nourished, no acute distress
Genitalia - Amado draining agatha urine
Skin - warm & dry with no rash
Neuro - AOx3, no motor deficits
Extremities - no clubbing, no cyanosis, no edema
Drain: thinly bloody urine
Dressings- clean, dry, intact
[2024-01-10 11:56] LABS: Body Fluid Amylase 189 U/L
--- NOTE | 2024-01-10 12:06 | W.PN.HOSP.TC ---
Today's Communication/Plan
-
see bold
Assessment / Plan
Assessment / Plan
73-year-old male with a past medical history of colon cancer status post right colectomy, COPD, former smoker, chronic hypoxic respiratory failure on 2-3 L at baseline, CHF, atrial fibrillation on Eliquis, CAD, CKD, hypertension, and type 2 diabetes
who presents with postoperative hypoxia after undergoing a radical left nephrectomy for left renal mass consistent with malignancy. Nursing staff reports that patient was hypoxic postoperatively. He does have a history of known COPD, and requires
2-3 L at baseline at all times. Currently patient is lethargic and on Bipap. He denies shortness of breath, denies chest pain. No coughing, no wheezing. No fever, no nausea, no vomiting. No black or bloody stools. He follows with Dr. Maddy Frost.
#Acute on chronic hypoxemic and hypercapnic respiratory failure
#COPD
#Probable obesity hypoventilation syndrome
#Probable PRISCILLA
Suspect secondary to anesthesia, obesity hypoventilation syndrome, with baseline COPD
Patient requires 2 to 3 L at baseline
Appreciate pulmonology input, ABGs improved on BiPAP
Currently on 4 L of oxygen, wean as tolerated
Continue BiPAP at bedtime, patient needs to follow-up with pulmonology for sleep study
#Left renal mass consistent with malignancy status post left nephrectomy 01/09/24
#History of prostate cancer
Plan of care as per primary, pain control, PT/OT, laxatives
Follow-up on pathology
#Chronic HFpEF
Patient Received 2 L of IV Fluids in the OR Today, will cap IVFs
Cardiology consulted, continue Bumex 2 mg p.o. twice daily with hold parameters
#Permanent afib since 2011 despite ablation in 2006
Cardiology consulted, continue diltiazem and metoprolol for rate control with hold parameters
Resume Eliquis when cleared by primary
#Hypotension
Hold losartan
#CAD
Continue statin, metoprolol
#Benign essential hypertension
Continue metoprolol, diltiazem
Hold losartan
#Colon cancer status post right colectomy 11/09/2023
#History of diabetes
Check hemoglobin A1c
#GERD
Continue PPI
#Anxiety/depression
Continue SSRI, trazodone
#Obesity due to excess calories
Affects all aspects of care
DVT prophylaxis�SCDs
Full code
We will follow the patient along with you.
Total time spent to see the patient on the floor, examine the patient, review data and lab results, discuss treatment plan with patient, nursing staff around 51 minutes.
Physical Exam
General: Obese, no acute distress
HEENT: Normocephalic, Atraumatic, EOMI, MMM
Respiratory: Clear to Auscultation bilaterally
Cardiac: Normal S1/S2, Regular Rate and Rhythm
GI: Soft, distended, left flank tenderness noted, JAXNO drain with serosanguineous drainage
Extremities: No Clubbing, Cyanosis, or Edema
Neuro: Nonfocal/Grossly Intact
Psych: Calm, Cooperative
Anticipated Discharge: 24 - 48 hours
Subjective/Interval History
-
Date of Service: January 10, 2024
Patient reports that his left abdominal pain is 6/10. No shortness of breath. No lightheadedness, no dizziness. No chest pain. No fever, no vomiting.
Objective Data
-
Labs:
Laboratory Results
01/10/24 01/10/24
04:12 04:56
WBC 14.0 H
Hgb 12.0 L
Hct 37.0 L
Plt Count 249
HCO3 34.5 H
Sodium 138
Potassium 4.7
Chloride 95 L
Carbon Dioxide 33 H
BUN 24 H
Creatinine 1.2
Glucose 193 H
Calcium 8.4
Vital Signs:
Vital Signs
Temp Pulse Resp BP Pulse Ox
98.6 F 88 13 113/66 97
01/10/24 07:29 01/10/24 08:51 01/10/24 08:00 01/10/24 08:51 01/10/24 08:00
I&O
01/09/24 01/10/24 01/11/24
06:59 06:59 06:59
Intake Total 300 / 300
Output Total 5 / 252
Balance -2225 / -2225
--- NOTE | 2024-01-10 12:37 | PTCARENOTE ---
JAXON drain specimen sent to lab- lab will send out for lipase result (unable to do at this facility)
--- NOTE | 2024-01-10 12:40 | PTCARENOTE ---
BP 98/68 in bed- Sat up on side of bed, c/o some dizziness- sitting BP 107/68- oob to chair with assist 1 and RW. Unable to stand long enough to get standing BP.
--- NOTE | 2024-01-10 16:15 | PTCARENOTE ---
Patient stood and pivoted with RW back to bed from chair. Patient stated that he 'feels dizzy' and patient was pallor. Patients BP is 72/49 MAP of 58. After 1 minute of rest, patients BP 80/57 with MAP of 66. Dr. Rodriguez and Dr. Bosch made aware.
Orders to keep MAP > 65. BP rechecked and BP is 94/57 with MAP of 67. Patient stated that he 'doesn't feel dizzy anymore'. Care ongoing at this time.
[2024-01-10] MEDS: LIPITOR 20 MG PO (17:39)
[2024-01-10] MEDS: CARDIZEM CD 120 MG PO (17:40)
[2024-01-10] MEDS: TOPROL XL 100 MG PO (17:40)
--- NOTE | 2024-01-10 18:35 | PTCARENOTE ---
Patient AOx3. A fib with BBB on tele. Patient on 4L NC with SpO2 greater than 92%. Amado removed and patient DTV. Bladder scanned patient for 90. Encouraged patient to increase fluids. L side JAXON dressing changed due to being saturated with serosang
drainage. Patient OOB with assist x1. Call silva within reach, bed in lowest position, and wheels locked.
[2024-01-10] MEDS: MELATONIN 10 MG PO (20:20)
[2024-01-10] MEDS: DESYREL 150 MG PO (20:20)
[2024-01-11] VITALS (13 sets, daily range): BP systolic 90–117; BP diastolic 51–76; PULSE 80–84; O2SAT 97
--- NOTE | 2024-01-11 00:10 | PTCARENOTE ---
Received patient from previous RN. Patient is Aox3. Afib on monitor. Patient is on 4L NC. Patient had right nephrectomy with JAXON drain producing pink drainage. Patient is OOB to chair times 2 assist with rolling walker. Patient resting in chair with
call silva in reach.
[2024-01-11] MEDS: SYMBICORT 80/4.5 MCG INHALER 2 PUFF INH ×2 (07:31→20:15)
[2024-01-11] MEDS: SPIRIVA RESPIMAT 2.5 MCG 2 PUFF INH (07:31)
--- NOTE | 2024-01-11 08:48 | W.PN.URO.CBU ---
Today's Communication / Plan
-
stable
slow physiological recovery
JAXON drain -- diminishing output; Amylase level was not indicative of pancreatic leak yesterday; appearance suggests lymphatic + hemolyzing blood
Plan:
increase activity
keep drain for now
Assessment / Plan
-
stable
per RN, RP drain's recorded volumes are incorrect -- 'it was only 50 cc last shift . . . its been going down'
Diagnosis
-
Date of Service: January 11, 2024
-
Patient Diagnosis:
Post Op Day:
Patient Diagnosis: Left Renal Mass s/p Hand-assisted laparoscopic radical nephrectomy
Post Op Day: 2
Subjective
-
less pain
eating
OOB to lounger
Objective
-
Vital Signs
Temp Pulse Resp BP Pulse Ox
98.2 F 82 18 97/58 96
01/11/24 04:10 01/11/24 07:34 01/11/24 07:34 01/11/24 06:00 01/11/24 07:34
Intake and Output
01/10/24 01/11/24 01/12/24
06:59 06:59 06:59
Intake Total 300 / 300 960 / 960
Output Total 2525 / 2525 1000 / 1000
Balance -2225 / -2225 -40 / -40
Intake:
Oral fluids 100 / 100 960 / 960
IV fluids (Total) 200 / 200
normosol 200 / 200
Output:
Drain Output (Total) 1240 / 1240 550 / 550
Left Lower Abdomen Sharif- 1240 / 1240 550 / 550
Fowler
Urine, Amado 1285 / 1285 250 / 250
Urine, Voided 200 / 200
Laboratory Results
01/10/24 04:12
01/10/24 04:12
Physical Exam
-
General - no acute distress
Abdomen - JAXON with milky red fluid
Incisions - stapled, clean, dry
--- NOTE | 2024-01-11 08:54 | W.PN.HOSP.TC ---
Today's Communication/Plan
-
see bold
Assessment / Plan
Assessment / Plan
73-year-old male with a past medical history of colon cancer status post right colectomy, COPD, former smoker, chronic hypoxic respiratory failure on 2-3 L at baseline, CHF, atrial fibrillation on Eliquis, CAD, CKD, hypertension, and type 2 diabetes
who presents with postoperative hypoxia after undergoing a radical left nephrectomy for left renal mass consistent with malignancy. Nursing staff reports that patient was hypoxic postoperatively. He does have a history of known COPD, and requires
2-3 L at baseline at all times. Currently patient is lethargic and on Bipap. He denies shortness of breath, denies chest pain. No coughing, no wheezing. No fever, no nausea, no vomiting. No black or bloody stools. He follows with Dr. Maddy Frost.
#Acute on chronic hypoxemic and hypercapnic respiratory failure
#COPD
#Probable obesity hypoventilation syndrome
#Probable PRISCILLA
Suspect secondary to anesthesia, obesity hypoventilation syndrome, with baseline COPD
Patient requires 2 to 3 L at baseline
Appreciate pulmonology input, ABGs improved on BiPAP
Currently on 4 L of oxygen, wean as tolerated
Continue BiPAP at bedtime, patient needs to follow-up with pulmonology for sleep study
#Left renal mass consistent with malignancy status post left nephrectomy 01/09/24
#History of prostate cancer
Plan of care as per primary, pain control, PT/OT, laxatives
Follow-up on pathology
#Acute kidney injury
Creatinine 1.8 today, was 1.2
Hold Bumex, trend creatinine, no nephrotoxic drugs/NSAIDs
#Chronic HFpEF
Patient Received 2 L of IV Fluids in the OR Today, will cap IVFs
Cardiology consulted, hold Bumex secondary to VICKIE
#Permanent afib since 2011 despite ablation in 2006
Cardiology consulted, continue diltiazem and metoprolol for rate control with hold parameters
Resume Eliquis when cleared by primary
#Constipation
Increase laxatives, give Dulcolax suppository, may need enema
#Hypotension
Resolved with holding losartan
#CAD
Continue statin, metoprolol
#Benign essential hypertension
Continue metoprolol, diltiazem
Cardiology recommends permanently discontinuing losartan
#Colon cancer status post right colectomy 11/09/2023
#History of diabetes
Check hemoglobin A1c
#GERD
Continue PPI
#Anxiety/depression
Continue SSRI, trazodone
#Obesity due to excess calories
Affects all aspects of care
DVT prophylaxis�SCDs
Full code
Dispo - PT rec SNF
We will follow the patient along with you.
Total time spent to see the patient on the floor, examine the patient, review data and lab results, discuss treatment plan with patient, nursing staff around 52 minutes.
Physical Exam
General: Obese, no acute distress
HEENT: Normocephalic, Atraumatic, EOMI, MMM
Respiratory: Clear to Auscultation bilaterally
Cardiac: Normal S1/S2, Regular Rate and Rhythm
GI: Soft, distended, left flank tenderness noted, JAXON drain with serosanguineous drainage
Extremities: No Clubbing, Cyanosis, or Edema
Neuro: Nonfocal/Grossly Intact
Psych: Calm, Cooperative
Anticipated Discharge: > 48 hours
Subjective/Interval History
-
Date of Service: January 11, 2024
Patient reports feeling tired. His left flank pain is 7 out of 10 in intensity. He complains of constipation. No chest pain, no shortness of breath. No fever, no vomiting.
Objective Data
-
Vital Signs:
Vital Signs
Temp Pulse Resp BP Pulse Ox
98.2 F 82 18 97/58 96
01/11/24 04:10 01/11/24 07:34 01/11/24 07:34 01/11/24 06:00 01/11/24 07:34
I&O
01/10/24 01/11/24 01/12/24
06:59 06:59 06:59
Intake Total 300 / 300 960 / 960
Output Total 2525 / 2525 1000 / 1000
Balance -2225 / -2225 -40 / -40
--- NOTE | 2024-01-11 09:10 | W.PN.CARDCBS ---
Today's Communication / Plan
-
Overall looks good. Remains in rate controlled A-fib. Continue Toprol and diltiazem as blood pressure allows.
Would discontinue Cozaar as outpatient for now. Can reassess in the future.
Hemoglobin overall stable at 12. Hopefully restart Eliquis over next 24 to 48 hours.
Creatinine stable at 1.2. Continue p.o. Bumex.
Impression / Plan
-
Please refer to office note dated 01/04/24
Primary Orthopedics Teacher: Dr. Rodrigez
Impression:
L renal mass s/p robotic assisted L nephrectomy 01/09/24
Chronic HFpEF
Pulmonary hypertension
COPD on chronic oxygen dependence
Permanent atrial fibrillation
Chronic OAC with eliquis
HTN
HLD
Chronic anemia
Obesity
history of colon cancer s/p colectomy 10/2021
Depression/anxiety
ECHO 10/2021: Definity contrast was used, EF 50 to 55%, no regional wall motion abnormalities, posterior MAC, trace MR, mildly dilated LA, mild TR, PAP 56 mmHg, severely dilated right atrium, mildly enlarged RV size
Echo December 2023, EF 55 to 60%, mild LVH, mild TR with PA pressure 39
Plan:
-Patient underwent robotic assisted left nephrectomy 01/09/2024.
He continues to improve. Respiratory status is improving. Will continue CPAP at night.
Ventricular rates are overall stable. Will continue Toprol and diltiazem. Eventual restart Eliquis when okay with urology. Hopefully over the next 24 to 48 hours. Hemoglobin stable at 12.0
Would hold Cozaar as outpatient and stop for now. Would only continue Toprol and diltiazem upon discharge
Continue Bumex 2 mg p.o. twice daily. Weight is overall stable. Creatinine at 1.2. Continue to follow status post nephrectomy. His volume status is acceptable.
Chest xray Jan 08: bibasilar opacities which may represent atelectasis
Echo December 2023, EF 55 to 60% with PA pressure 39.
Cont post op care.
Progress Note - Orthopedics Teacher
Subjective
Date of Service: January 11, 2024
Overall feels well. Denies chest pains or shortness of breath. Minimal incisional pain.
Objective
Labs:
Labs
Hgb 12.0 g/dL (13.0-18.0) L 01/10/24 04:12
Hct 37.0 % (39.0-52.0) L 01/10/24 04:12
Plt Count 249 10^3/uL (130-400) 01/10/24 04:12
Sodium 138 mmol/L (135-145) 01/10/24 04:12
Potassium 4.7 mmol/L (3.5-5.1) 01/10/24 04:12
BUN 24 mg/dl (9-20) H 01/10/24 04:12
Creatinine 1.2 mg/dL (0.7-1.3) 01/10/24 04:12
Glucose 193 mg/dl (70-99) H 01/10/24 04:12
Vital Signs and I&O:
Vital Signs
Temp Pulse Resp BP Pulse Ox
98.2 F 82 18 97/58 96
01/11/24 04:10 01/11/24 07:34 01/11/24 07:34 01/11/24 06:00 01/11/24 07:34
Vital Signs
Temp Pulse Resp BP Pulse Ox
98.2 F 82 18 97/58 96
01/11/24 04:10 01/11/24 07:34 01/11/24 07:34 01/11/24 06:00 01/11/24 07:34
Intake & Output
01/09/24 01/10/24 01/11/24 01/12/24
06:59 06:59 06:59 06:59
Intake Total 300 / 300 960 / 960
Output Total 2525 / 2525 1000 / 1000
Balance -2225 / -2225 -40 / -40
Physical Exam
Physical Exam
GEN: No distress, awake, Ox3
HEENT: supple, anicteric, mmm
LUNGS: scatt rhonchi
CV: irreg, S1/S2, 1/6 syst LSB, no gallop
ABD: soft, BS+, NT/ND
EXT: trace edema
NEURO: Gross non-focal
SKIN: No rash
[2024-01-11 09:41] LABS: % Basophils 0.1 % (0-2); % Eosinophils 0.6 % (0-6); % Immature Granulocytes 0.4 % (0-0.5); % Lymphocytes 5.1 % (20.5-51.1); % Monocytes 11.6 % (1.7-9.3); % Neutrophils 82.2 % (42.2-75.2); Absolute Eosinophils 0.1 10^3/uL (0-0.7); Absolute Immature Granulocytes 0.1 10^3/uL (0-0.05); Absolute Lymphocytes 0.8 10^3/uL (1.2-3.4); Absolute Monocytes 1.7 10^3/uL (0.1-0.6); Absolute Neutrophils 12.1 10^3/uL (1.4-6.5); Hemoglobin 11.5 g/dL (13.0-18.0); Mean Corp Hgb Conc. 31.1 g/dL (33.0-37.0); Mean Corpuscular Hgb 30.3 pg (27.0-31.0); Mean Corpuscular Volume 97.6 fL (80.0-94.0); Mean Platelet Volume 9.5 fL (7.4-10.4); Nucleated Red Blood Cells % 0 % (-); Platelet Count 222 10^3/uL (130-400); Red Blood Cell Count 3.79 10^6/uL (4.70-6.10); Red Cell Dist. Width 13.7 % (11.5-14.5); White Blood Cell Count 14.7 10^3/uL (4.8-10.8)
[2024-01-11] MEDS: PERCOCET 5/325 2 TABLET PO ×2 (09:56→21:57)
[2024-01-11] MEDS: MIRALAX 17 GRAMS PO (09:57)
[2024-01-11] MEDS: SENOKOT-S 2 TABLET PO ×2 (09:58→20:22)
[2024-01-11] MEDS: LEXAPRO 5 MG PO (09:58)
[2024-01-11] MEDS: KCL 20 MEQ PO (09:58)
[2024-01-11] MEDS: BUMEX 2 MG PO (09:58)
[2024-01-11] MEDS: COLACE 100 MG PO ×2 (09:58→20:21)
[2024-01-11] MEDS: PROTONIX 40 MG PO (09:58)
[2024-01-11 10:06] LABS: Blood Urea Nitrogen 36 mg/dl (9-20); Calcium 8.6 mg/dl (8.4-10.2); Carbon Dioxide 34 mmol/L (22-30); Chloride 92 mmol/L (98-107); Estimated Creatinine Clearance 49 ml/min; Glucose 154 mg/dl (70-99); Magnesium 2.2 mg/dl (1.6-2.3); Phosphorus 4.5 mg/dl (2.5-4.5); Potassium 4.8 mmol/L (3.5-5.1); Sodium 137 mmol/L (135-145); eGFR 39.01
--- NOTE | 2024-01-11 11:05 | W.PN.PUL3 ---
Today's Communication / Plan
-
Remains on 4L NC, wean as tolerated to baseline
BIPAP continues at night, patient has started refusing now
Continue PT/OT, postop care
Can likely transfer to [facility]
OP FU recommended
Assessment
-
Patient is a 73-year-old male with previous history of severe COPD, chronic hypoxic respiratory failure on O2, chronic A-fib, hypertension, diastolic heart failure presenting for elective nephrectomy for history of left renal mass. Underwent
procedure and postoperatively developed hypoxemia for which she was placed on BiPAP. ABG obtained indicating mild acute respiratory acidosis. He has evidence of obesity hypoventilation syndrome. He was told 2 years ago that he needed a sleep
study but did not follow-up. He is currently in PACU on BiPAP and tolerating device well.
Acute on chronic hypoxic/hypercarbic respiratory failure
Suspect PRISCILLA/OHS
Likely with postoperative atelectasis
Renal mass status post elective nephrectomy 01/09/24
Leukocytosis
Hyperglycemia
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
Prostate Cancer
Anxiety
HTN
Depression
Chronic Anemia
Severe COPD/bronchitis
Currently on Trelegy, 12/2023-FEV1 0.95L 29%, FVC 1.47L 33%, ratio 65.
08/31/20 from OSH- FEV1 32%, FVC 40%, ratio 63. TLC 53%, DLCO 60%
Moderately severe RLD
Diastolic-CHF
A-Fib
PAD s/p Aorto-biliac arteriogram, LLE arteriogram 11/30/20
Osteoporosis
Rheumatoid arthritis
Colon cancer s/p Robotic Right Colectomy
Hiatal hernia repair
L knee injections x3
R knee injection
Left Carpal tunnel release 10/27/22
Suspected PRISCILLA, supposed to obtain sleep study/did not follow up
Obesity BMI 38
Plan
He is chronically on oxygen, notably on 2 L with exertion
Currently on 4L, wean as tolerated
This is likely due to pulmonary insufficiency/atelectasis post procedure
Continue IS, ambulation and wean off oxygen
Suspect PRISCILLA, was instructed to get sleep study 2 years prior but did not follow up
ABG showing pH 7.31/CO2 64 indicating OHS
Can continue BIPAP overnight
Repeat ABG in AM improved, can repeat PRN
We discussed need for OP testing and set up--this has been arranged as PSG/titration/immediate set up
He has been refusing now, I encouraged him to continue using nightly
Prior history of lung disease is noted including severe COPD on Trelegy
Prior PFTs reviewed indicating FEV1 of 29%
Resume home inhalers
He also has comorbid history of restrictive lung disease, diastolic heart failure
CXR/CT obtained indicating no acute findings, bibasilar atelectasis is present
Other imaging reviewed in past as well
Prior ECHO results are reviewed indicating stable function with moderate pulmonary hypertension
This has not been repeated since 2021
Cautious fluid administration, resumption of home diuretic
If stalling on his oxygen weaning, may consider cardiology input
proBNP--1140
Weight loss measures recommended
Obesity likely contributing to respiratory symptoms
Will need outpatient pulmonary evaluation in our office at discharge
D/c planning per team
Diagnostic Data
Chest X-Ray: 01/09/24-Bibasilar opacities which may represent atelectasis or potentially postprocedural change. No pneumothorax.
CT Scan: CAP 12/19/23- 1. Post colonic resection. No bowel obstruction. As above, fat attenuation structure in anterior right abdomen with surrounding soft tissue attenuation probably old fat necrosis or chronic partial omental infarct related to
previous surgery.
2. Heterogeneously enhancing left renal mass measuring up to 6.5 cm in diameter, highly suspicious for renal cell carcinoma. There are some mildly enlarged retroperitoneal lymph nodes as above, metastatic involvement cannot be excluded.
3. Elevation left hemidiaphragm with adjacent atelectatic change. Trace left pleural effusion.
4. Dilation of the main pulmonary artery as seen previously, question pulmonary hypertension.
5. Mild irregularity of the hepatic capsular contour and enlarged left lobe, early change of cirrhosis is a differential consideration. No specific findings suggestive of portal hypertension.
6. Cholelithiasis.
11/05/21- 1. Focal area of thickening involving the transverse colon, likely corresponding to the patient's known transverse colon mass. No mesenteric lymphadenopathy is appreciated.
2. No evidence of hepatic metastasis.
3. Groundglass nodule at the right lung apex, measuring 7 mm in diameter. No additional lung nodules are appreciated. This nodule is indeterminate, and should be followed with imaging.
4. Prominence of the main pulmonary trunk, suggestive of pulmonary arterial hypertension in the correct clinical setting.
5. Mild cardiomegaly. Moderate coronary arterial calcification. Please correlate with symptoms of and risk factors for coronary artery disease, with further workup as clinically appropriate.
6. Cholelithiasis without evidence of acute cholecystitis.
Echo: 11/07/21-Normal left ventricular size, wall thickness and systolic function. No regional wall motion abnormalities are seen. LV ejection fraction is 50-55% by Chandler's method of discs. Diastolic function indeterminate due to atrial
fibrillation. Definity contrast was used. Mitral valve opens normally. Posterior mitral annular calcification. Trace mitral regurgitation. Mildly dilated left atrium. Tricuspid valve opens normally. Mild tricuspid regurgitation. Estimated pulmonary
artery pressure of 56 mmHg assuming a right atrial pressure of 8 mmHg.Severely dilated right atrium. Mildly enlarged right ventricular size. Normal right ventricular systolic function. Since echocardiogram November 2020 which was reviewed, there is
no significant change.
PFT's 12/2023-- FEV1 0.95L 29%, FVC 1.47L 33%, ratio 65.
08/31/20 from OSH- FEV1 32%, FVC 40%, ratio 63. TLC 53%, DLCO 60%
6MWT 12/06/23- 6 minute walk test performed and reconfirmed his exertional hypoxemia. Desaturated to 85% after [address] and titrated to 2 L and maintained an oxygen saturation of 93-94%. Exertional tachycardia noted at 150-160 bpm.
Reports and relevant images were personally reviewed.
Total time spent on this encounter __51__ minutes which includes review of history, physical exam, medications, laboratory data, personal review of imaging, extensive review of outpatient records, discussion with care team and respiratory therapy.
Subjective Data
-
Date of Service:
Date of Service: January 11, 2024
Chief Complaint: Pulmonary Follow Up
Subjective:
No new events, stable
Has refused BIPAP recently despite known risk
Objective Data
Data Reviewed
Vital Signs / I&O / Oxygen:
Vital Signs
Temp Pulse Resp BP Pulse Ox
98.2 F 88 18 95/51 96
01/11/24 04:10 01/11/24 09:58 01/11/24 07:34 01/11/24 09:58 01/11/24 07:34
Intake and Output
01/10/24 01/11/24 01/12/24
06:59 06:59 06:59
Intake Total 300 / 300 960 / 960
Output Total 2525 / 2525 1000 / 1000
Balance -2225 / -2225 -40 / -40
SaO2 96
Nasal Cannula flow liters per 4
minute
Physical Exam
General: Comfortable and Other (NAD)
HEENT: Normocephalic, Anicteric and Moist Mucous Membranes
Cardiovascular: S1-S2, Regular Rhythm and Peripheral Edema (discoloration noted)
Respiratory: Clear and Non-Labored Respirations
GI: Soft, Non Distended and Non Tender
Neurology: Awake, Alert, Oriented and No Motor Deficits
Skin: Warm, Dry and Good Color
Labs/Micro/Reports
Lab Data
01/11/24 09:27
01/11/24 09:27
--- NOTE | 2024-01-11 13:20 | CM ---
Addendum entered by Lien Cruz RN 01/14/24 11:05:
Late Entry - Update for 01/11/24:
Received callback from family requesting a referral to [facility] in [facility] where patient had been previously- referral placed. They think patient will be in agreement with this plan.
Plan follow up with [facility] for acceptance.
Addendum entered by Lien Cruz RN 01/11/24 16:20:
Spoke with patient's brother Kevin and Fanta, sister in law, who was a SW;
the patient resides alone in a first floor apartment with 3 GENESIS.
He was independent in ADLs and ambulation using his RW, and able to shop for himself and drive.
DME - [facility]
VN - prior [facility]
SNF - [facility]
PCP - Abdullahi Jean-Baptiste at [facility]
Pharmacy - [facility]
The patient and family are interested in the patient going to [facility] at discharge.
Referral placed.
Plan follow up SNF referral.
Original Note:
Patient with Hx Colon cancer s/p right colectomy 11/09/2023 who underwent robotic assisted left nephrectomy 01/09/24. O2 4L. JAXON Drain. Regular diet. PT/OT recommend skilled rehab.
Met with patient, spoke with his brother Kevin and sister in law by phone; discussed short term SNF for rehab vs home with [facility], that he had service with previously. SNF list provided. Patient unsure if he wants to go to rehab and is
hoping his mobility will improve while he is here, and he can go home.
Plan follow up with patient and family re; SNF vs .
[2024-01-11] MEDS: DULCOLAX 10 MG RECTAL (13:31)
--- NOTE | 2024-01-11 18:13 | PTCARENOTE ---
Rec'd pt this AM. OOB to chair and BSC with 2 assist. bowel regime in place. very small BM post suppository. pt agrees to try enema in morning. understands he has to lay on his side in bed. vital signs stable. call silva in reach. Pt with poor
appetite but agrees to try dinner tonight.
[2024-01-11] MEDS: TOPROL XL 100 MG PO (18:33)
[2024-01-11] MEDS: CARDIZEM CD 120 MG PO (18:34)
[2024-01-11] MEDS: LIPITOR 20 MG PO (18:34)
[2024-01-11] MEDS: DESYREL 150 MG PO (20:22)
[2024-01-11] MEDS: MELATONIN 10 MG PO (20:22)
--- NOTE | 2024-01-11 22:25 | PTCARENOTE ---
Assumed care of patient. Patient OOB and in chair. Patient on 4L NC sating at 94%. Afib on monitor with a right bundle branch block. Patient has a left JAXON drain which is draining pink/red. Patient is a assist x2 with a rolling walker. Patient
resting in chair with call silva in reach.
[2024-01-12] VITALS (12 sets, daily range): BP systolic 91–137; BP diastolic 52–81
[2024-01-12 05:16] LABS: Hematocrit 36.1 % (39.0-52.0); Hemoglobin 11.2 g/dL (13.0-18.0); Mean Corpuscular Hgb 30.4 pg (27.0-31.0); Mean Corpuscular Volume 97.8 fL (80.0-94.0); Mean Platelet Volume 9.6 fL (7.4-10.4); Platelet Count 195 10^3/uL (130-400); Red Blood Cell Count 3.69 10^6/uL (4.70-6.10); Red Cell Dist. Width 13.4 % (11.5-14.5); White Blood Cell Count 13.3 10^3/uL (4.8-10.8)
[2024-01-12 05:37] LABS: Blood Urea Nitrogen 45 mg/dl (9-20); Calcium 8.8 mg/dl (8.4-10.2); Carbon Dioxide 31 mmol/L (22-30); Chloride 91 mmol/L (98-107); Estimated Creatinine Clearance 42 ml/min; Glucose 136 mg/dl (70-99); Potassium 5.2 mmol/L (3.5-5.1); Sodium 134 mmol/L (135-145); eGFR 32.42
[2024-01-12] MEDS: SPIRIVA RESPIMAT 2.5 MCG 2 PUFF INH (07:39)
[2024-01-12] MEDS: SYMBICORT 80/4.5 MCG INHALER 2 PUFF INH ×2 (07:40→18:37)
--- NOTE | 2024-01-12 08:15 | W.PN.HOSP.TC ---
Today's Communication/Plan
-
Milk of molasses enema
Assessment / Plan
Assessment / Plan
73-year-old male with a past medical history of colon cancer status post right colectomy, COPD, former smoker, chronic hypoxic respiratory failure on 2-3 L at baseline, CHF, atrial fibrillation on Eliquis, CAD, CKD, hypertension, and type 2 diabetes
who presents with postoperative hypoxia after undergoing a radical left nephrectomy for left renal mass consistent with malignancy. Nursing staff reports that patient was hypoxic postoperatively. He does have a history of known COPD, and requires
2-3 L at baseline at all times. Currently patient is lethargic and on Bipap. He denies shortness of breath, denies chest pain. No coughing, no wheezing. No fever, no nausea, no vomiting. No black or bloody stools. He follows with Dr. Maddy Frost.
#Acute on chronic hypoxemic and hypercapnic respiratory failure
#COPD
#Probable obesity hypoventilation syndrome
#Probable PRISCILLA
Suspect secondary to anesthesia, obesity hypoventilation syndrome, with baseline COPD
Patient requires 2 to 3 L at baseline
Appreciate pulmonology input, ABGs improved on BiPAP
Currently on 4 L of oxygen, wean as tolerated
Continue BiPAP at bedtime, patient needs to follow-up with pulmonology for sleep study
#Left renal mass consistent with malignancy status post left nephrectomy 01/09/24
#History of prostate cancer
Plan of care as per primary, pain control, PT/OT, laxatives
Follow-up on pathology
#Acute kidney injury
Creatinine 2.1, was 1.8, was 1.2
Hold Bumex, trend creatinine, no nephrotoxic drugs/NSAIDs
#Chronic HFpEF
Patient Received 2 L of IV Fluids in the OR Today, will cap IVFs
Cardiology consulted, hold Bumex secondary to VICKIE
#Permanent afib since 2011 despite ablation in 2006
Cardiology consulted, continue diltiazem and metoprolol for rate control with hold parameters
Resume Eliquis when cleared by primary
#Constipation
Enema today, continue laxatives
#Hyperkalemia
Lokelma x 1
#Hypotension
Resolved with holding losartan
#CAD
Continue statin, metoprolol
#Benign essential hypertension
Continue metoprolol, diltiazem
Cardiology recommends permanently discontinuing losartan
#Colon cancer status post right colectomy 11/09/2023
#History of diabetes
Hemoglobin A1c 6.2
#GERD
Continue PPI
#Anxiety/depression
Continue SSRI, trazodone
#Obesity due to excess calories
Affects all aspects of care
DVT prophylaxis�SCDs
Full code
Dispo - PT rec SNF
We will follow the patient along with you.
Total time spent to see the patient on the floor, examine the patient, review data and lab results, discuss treatment plan with patient, nursing staff around 51 minutes.
Physical Exam
General: Obese, no acute distress
HEENT: Normocephalic, Atraumatic, EOMI, MMM
Respiratory: Clear to Auscultation bilaterally
Cardiac: Normal S1/S2, Regular Rate and Rhythm
GI: Soft, distended, left flank tenderness noted, JAXON drain with serosanguineous drainage
Extremities: No Clubbing, Cyanosis, or Edema
Neuro: Nonfocal/Grossly Intact
Psych: Calm, Cooperative
Anticipated Discharge: > 48 hours
Subjective/Interval History
-
Date of Service: January 12, 2024
Patient complains of constipation. No bowel movement with Dulcolax. Continues to have left-sided abdominal pain from the surgery. No chest pain, no shortness of breath. No fever, no vomiting.
Objective Data
-
Labs:
Laboratory Results
01/12/24
04:46
WBC 13.3 H
Hgb 11.2 L
Hct 36.1 L
Plt Count 195
Sodium 134 L
Potassium 5.2 H
Chloride 91 L
Carbon Dioxide 31 H
BUN 45 H
Creatinine 2.1 H
Glucose 136 H
Calcium 8.8
Vital Signs:
Vital Signs
Temp Pulse Resp BP Pulse Ox
98 F 77 15 106/61 98
01/12/24 03:16 01/12/24 07:44 01/12/24 07:44 01/12/24 04:00 01/12/24 07:44
I&O
01/11/24 01/12/24 01/13/24
06:59 06:59 06:59
Intake Total 960 / 960
Output Total 1000 / 1000 643 / 643
Balance -40 / -40 -643 / -643
--- NOTE | 2024-01-12 08:19 | W.PN.CARDCBS ---
Today's Communication / Plan
-
Hold diuretic and ARB with rising cr
Cont post op care
Pulm toilet
Impression / Plan
-
.
Primary Learning Support Aide: Dr. Rodrigez
Impression:
L renal mass s/p robotic assisted L nephrectomy 01/09/24
Chronic HFpEF
Pulmonary hypertension
COPD on chronic oxygen dependence
Permanent atrial fibrillation
Chronic OAC with eliquis
HTN
HLD
Chronic anemia
Obesity
history of colon cancer s/p colectomy 10/2021
Depression/anxiety
ECHO 10/2021: Definity contrast was used, EF 50 to 55%, no regional wall motion abnormalities, posterior MAC, trace MR, mildly dilated LA, mild TR, PAP 56 mmHg, severely dilated right atrium, mildly enlarged RV size
Echo December 2023, EF 55 to 60%, mild LVH, mild TR with PA pressure 39
Plan:
-Patient underwent robotic assisted left nephrectomy 01/09/2024.
Cont post op care
Remains constipated and primary service working on his bowel regimen.
He has perm aFib and HR and bp stable on Toprol and Cardizem.
Resume Eliquis once ok with urology. Hemoglobin stable at 11.2
Cont pulm toilet. Encouraged to continue CPAP at night. He is not on CPAP at home.
Cont home O2.
With rising cr, cont to hold Cozaar and stop for now. Would only continue Toprol and diltiazem upon discharge
Bumex now on hold. He was on 2 mg BID. Wt is overall stable. Cr 2.1 on Jan 11.
Chest xray Jan 08: bibasilar opacities which may represent atelectasis
Echo December 2023, EF 55 to 60% with PA pressure 39.
Discussed with nursing.
Progress Note - Learning Support Aide
Subjective
Date of Service: January 12, 2024
Pt seen and examined. No cp. He states he has chronic dyspnea. Still with constipation
Objective
Labs:
01/12/24 04:46
01/12/24 04:46
Labs
Hgb 11.2 g/dL (13.0-18.0) L 01/12/24 04:46
Hct 36.1 % (39.0-52.0) L 01/12/24 04:46
Plt Count 195 10^3/uL (130-400) 01/12/24 04:46
Sodium 134 mmol/L (135-145) L 01/12/24 04:46
Potassium 5.2 mmol/L (3.5-5.1) H 01/12/24 04:46
BUN 45 mg/dl (9-20) H 01/12/24 04:46
Creatinine 2.1 mg/dL (0.7-1.3) H 01/12/24 04:46
Glucose 136 mg/dl (70-99) H 01/12/24 04:46
Vital Signs and I&O:
Vital Signs
Temp Pulse Resp BP Pulse Ox
98 F 77 15 106/61 98
01/12/24 03:16 01/12/24 07:44 01/12/24 07:44 01/12/24 04:00 01/12/24 07:44
Vital Signs
Temp Pulse Resp BP Pulse Ox
98 F 77 15 106/61 98
01/12/24 03:16 01/12/24 07:44 01/12/24 07:44 01/12/24 04:00 01/12/24 07:44
Intake & Output
01/10/24 01/11/24 01/12/24 01/13/24
06:59 06:59 06:59 06:59
Intake Total 300 / 300 960 / 960
Output Total 2525 / 2525 1000 / 1000 643 / 643
Balance -2225 / -2225 -40 / -40 -643 / -643
Physical Exam
Physical Exam
General: No acute distress, AAOX3
Neck: Negative JVD
Heart: Irregularly irregular, Negative S3 positive S1/S2, Negative S4, No murmur
Lungs: CTA b/l, negative wheezes/rales/rhonchi
Abd: Morbid obesity. Positive BS, NT/ND, neg rebound/rigidity/guarding
Ext: Negative cyanosis/clubbing/edema
Neuro: nonfocal
[2024-01-12] MEDS: COLACE PO (08:30)
[2024-01-12] MEDS: SENOKOT-S PO (08:30)
[2024-01-12] MEDS: MIRALAX 17 GRAMS PO (08:30)
[2024-01-12] MEDS: PROTONIX PO (08:30)
[2024-01-12] MEDS: LEXAPRO 5 MG PO (08:30)
[2024-01-12] MEDS: DUPHALAC/CHRONULAC 20 GRAMS PO ×2 (08:41→20:16)
[2024-01-12] MEDS: PROTONIX 40 MG PO (08:41)
[2024-01-12] MEDS: COLACE 100 MG PO ×2 (08:41→20:16)
[2024-01-12] MEDS: SENOKOT-S 2 TABLET PO ×2 (08:41→20:15)
[2024-01-12] MEDS: LOKELMA 10 GRAM PO (10:58)
[2024-01-12 11:07] LABS: Glycohemoglobin (HgbA1c) 6.2 % (4.0-5.6)
--- NOTE | 2024-01-12 11:58 | W.PN.PUL.V3 ---
Today's Communication / Plan
-
Encouraged PAP
Incentive spirometry
Mucus clearing devices
Diuresis on hold
Outpatient sleep disordered breathing/pulmonary follow-up
Assessment
-
Patient is a 73-year-old male with previous history of severe COPD, chronic hypoxic respiratory failure on O2, chronic A-fib, hypertension, diastolic heart failure presenting for elective nephrectomy for history of left renal mass. Underwent
procedure and postoperatively developed hypoxemia for which she was placed on BiPAP. ABG obtained indicating mild acute respiratory acidosis. He has evidence of obesity hypoventilation syndrome. He was told 2 years ago that he needed a sleep
study but did not follow-up. He is currently in PACU on BiPAP and tolerating device well.
Acute on chronic hypoxic/hypercarbic respiratory failure
Suspect PRISCILLA/OHS
Likely with postoperative atelectasis
Renal mass status post elective nephrectomy 01/09/24
Leukocytosis
Hyperglycemia
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
Prostate Cancer
Anxiety
HTN
Depression
Chronic Anemia
Severe COPD/bronchitis
Currently on Trelegy, 12/2023-FEV1 0.95L 29%, FVC 1.47L 33%, ratio 65.
08/31/20 from OSH- FEV1 32%, FVC 40%, ratio 63. TLC 53%, DLCO 60%
Moderately severe RLD
Diastolic-CHF
A-Fib
PAD s/p Aorto-biliac arteriogram, LLE arteriogram 11/30/20
Osteoporosis
Rheumatoid arthritis
Colon cancer s/p Robotic Right Colectomy
Hiatal hernia repair
L knee injections x3
R knee injection
Left Carpal tunnel release 10/27/22
Suspected PRISCILLA, supposed to obtain sleep study/did not follow up
Obesity BMI 38
Plan
Postoperative hypoxemia is likely due to pulmonary insufficiency/atelectasis post procedure
Incentive spirometry
Aspiration precautionsRespiratory status is relatively stable
Continue supplemental oxygen-attempt to wean-he is usually on 2 L with exertion
Strongly suspect PRISCILLA or obesity hypoventilation syndrome, was instructed to get sleep study 2 years prior but did not follow up
ABG showing pH 7.31/CO2 64 indicating OHS
Continue BIPAP overnight as tolerated
We discussed need for OP testing and set up--this has been arranged as PSG/titration/immediate set up
He has been refusing now-we encouraged him to continue using nightly
Prior history of lung disease is noted including severe COPD on Trelegy
Prior PFTs reviewed indicating FEV1 of 29%
Resume home inhalers
He also has comorbid history of restrictive lung disease, diastolic heart failure
Prior ECHO results are reviewed indicating stable function with moderate pulmonary hypertension
This has not been repeated since 2021
Cautious fluid administration, resumption of home diuretic
If stalling on his oxygen weaning, may consider cardiology input
proBNP--1140
Cardiology following-reviewed with them
Weight loss measures recommended
Obesity likely contributing to respiratory symptoms
DVT prophylaxis recommended
GI prophylaxis-on pantoprazole
Nutrition
Physical therapy
Reviewed with nursing
Will need outpatient pulmonary evaluation in our office at discharge
Diagnostic Data
Chest X-Ray: 01/09/24-Bibasilar opacities which may represent atelectasis or potentially postprocedural change. No pneumothorax.
CT Scan: [facility] 12/19/23- 1. Post colonic resection. No bowel obstruction. As above, fat attenuation structure in anterior right abdomen with surrounding soft tissue attenuation probably old fat necrosis or chronic partial omental infarct related to
previous surgery.
2. Heterogeneously enhancing left renal mass measuring up to 6.5 cm in diameter, highly suspicious for renal cell carcinoma. There are some mildly enlarged retroperitoneal lymph nodes as above, metastatic involvement cannot be excluded.
3. Elevation left hemidiaphragm with adjacent atelectatic change. Trace left pleural effusion.
4. Dilation of the main pulmonary artery as seen previously, question pulmonary hypertension.
5. Mild irregularity of the hepatic capsular contour and enlarged left lobe, early change of cirrhosis is a differential consideration. No specific findings suggestive of portal hypertension.
6. Cholelithiasis.
11/05/21- 1. Focal area of thickening involving the transverse colon, likely corresponding to the patient's known transverse colon mass. No mesenteric lymphadenopathy is appreciated.
2. No evidence of hepatic metastasis.
3. Groundglass nodule at the right lung apex, measuring 7 mm in diameter. No additional lung nodules are appreciated. This nodule is indeterminate, and should be followed with imaging.
4. Prominence of the main pulmonary trunk, suggestive of pulmonary arterial hypertension in the correct clinical setting.
5. Mild cardiomegaly. Moderate coronary arterial calcification. Please correlate with symptoms of and risk factors for coronary artery disease, with further workup as clinically appropriate.
6. Cholelithiasis without evidence of acute cholecystitis.
Echo: 11/07/21-Normal left ventricular size, wall thickness and systolic function. No regional wall motion abnormalities are seen. LV ejection fraction is 50-55% by Chandler's method of discs. Diastolic function indeterminate due to atrial
fibrillation. Definity contrast was used. Mitral valve opens normally. Posterior mitral annular calcification. Trace mitral regurgitation. Mildly dilated left atrium. Tricuspid valve opens normally. Mild tricuspid regurgitation. Estimated pulmonary
artery pressure of 56 mmHg assuming a right atrial pressure of 8 mmHg.Severely dilated right atrium. Mildly enlarged right ventricular size. Normal right ventricular systolic function. Since echocardiogram November 2020 which was reviewed, there is
no significant change.
PFT's 12/2023-- FEV1 0.95L 29%, FVC 1.47L 33%, ratio 65.
08/31/20 from OSH- FEV1 32%, FVC 40%, ratio 63. TLC 53%, DLCO 60%
6MWT 12/06/23- 6 minute walk test performed and reconfirmed his exertional hypoxemia. Desaturated to 85% after [address] and titrated to 2 L and maintained an oxygen saturation of 93-94%. Exertional tachycardia noted at 150-160 bpm.
Reports and relevant images were personally reviewed.
Subjective Data
-
Date of Service:
Date of Service: January 12, 2024
Chief Complaint: Pulmonary Follow Up and Dyspnea Follow Up
Subjective:
Out of bed, some complaints of shortness of breath with exertion, none at rest, no chest pain or new abdominal pain
Review of Systems
General: Other (Per HPI)
Objective Data
Data Reviewed
Vital Signs / I&O:
Vital Signs
Temp Pulse Resp BP Pulse Ox
98.3 F 87 25 113/74 93
01/12/24 11:01 01/12/24 10:00 01/12/24 10:00 01/12/24 10:00 01/12/24 11:33
Intake and Output
01/11/24 01/12/24 01/13/24
06:59 06:59 06:59
Intake Total 960 / 960
Output Total 1000 / 1000 643 / 643 300 / 300
Balance -40 / -40 -643 / -643 -300 / -300
SaO2: 93
Nasal Cannula flow liters per minute: 4
Physical Exam
General: Comfortable and Other (NAD)
HEENT: Normocephalic, Anicteric and Moist Mucous Membranes
Cardiovascular: S1-S2, Regular Rhythm and Peripheral Edema (discoloration noted)
Respiratory: Clear and Non-Labored Respirations
GI: Soft, Non Distended and Non Tender
Neurology: Awake, Alert, Oriented and No Motor Deficits
Skin: Warm, Dry and Good Color
Labs/Micro/Reports
Lab Data
01/12/24 04:46
01/12/24 04:46
--- NOTE | 2024-01-12 12:59 | W.PN.URO.CBU ---
Today's Communication / Plan
-
no gu interrwintions
Assessment / Plan
-
stable
per RN, RP drain's recorded volumes are incorrect -- 'it was only 50 cc last shift . . . its been going down'[pt with multiple comorbidites stabilizing may nee rehab
Diagnosis
-
Date of Service: January 12, 2024
-
Patient Diagnosis:
Post Op Day:
Patient Diagnosis:
Post Op Day:
Patient Diagnosis: Left Renal Mass s/p Hand-assisted laparoscopic radical nephrectomy
Post Op Day: 2
Subjective
-
severe constipaotion
Objective
-
Vital Signs
Temp Pulse Resp BP Pulse Ox
98.3 F 87 25 113/74 93
01/12/24 11:01 01/12/24 10:00 01/12/24 10:00 01/12/24 10:00 01/12/24 12:00
Intake and Output
01/11/24 01/12/24 01/13/24
06:59 06:59 06:59
Intake Total 960 / 960
Output Total 1000 / 1000 643 / 643 300 / 300
Balance -40 / -40 -643 / -643 -300 / -300
Intake:
Oral fluids 960 / 960
Output:
Drain Output (Total) 550 / 550 143 / 143
Left Lower Abdomen Sharif- 550 / 550 143 / 143
Fowler
Urine, Amado 250 / 250
Urine, Voided 200 / 200 500 / 500 300 / 300
Laboratory Results
01/12/24 04:46
01/12/24 04:46
Review of Systems
-
Abdomen/GI: Abdominal Pain and Constipated
Musculoskeletal: No Symptoms
Physical Exam
-
General - well developed, well nourished, no acute distress
Chest - clear bilaterally
Abdomen - soft, non-tender, positive bowel sounds, no CVAT, no incisional pain or distention
Genitalia - normal
Rectal - normal
Skin - warm & dry with no rash
Neuro - AOx3, no motor deficits
Extremities - no clubbing, no cyanosis, no edema
Incision - clean, dry
Dressing - clean, dry, intact
Care Review
Data Reviewed
Discussed with: Nursing
[2024-01-12] MEDS: PERCOCET 5/325 2 TABLET PO ×2 (13:57→20:15)
--- NOTE | 2024-01-12 14:32 | PTCARENOTE ---
Rec'd pt this AM in bedside chair. Pt reported feeling dizzy on standing. 4 staff assisted pt back to bed. Enema given for severe constipation with good relief. Pt with large BM. Abdomen soft following. Pt reports feeling much better. able to rest.
vital signs stable. resting in bed comfortably this time.
[2024-01-12] MEDS: CARDIZEM CD 120 MG PO (17:32)
[2024-01-12] MEDS: TOPROL XL 100 MG PO (17:32)
[2024-01-12] MEDS: LIPITOR 20 MG PO (17:32)
[2024-01-12] MEDS: DESYREL 150 MG PO (22:06)
[2024-01-12] MEDS: MELATONIN 10 MG PO (22:06)
[2024-01-13] VITALS (14 sets, daily range): BP systolic 104–134; BP diastolic 60–92; BMI 39.2
[2024-01-13] MEDS: PERCOCET 5/325 2 TABLET PO ×2 (02:28→11:58)
--- NOTE | 2024-01-13 03:52 | PTCARENOTE ---
Assumed care of Pt at shift change. Pt resting comfortably in bed; SpO2 ~ 94-96% on 4L o2 via NC; Left JAXON drain putting out mod amt of serosanguineous drainage. Pt reports ongoing pain at surgery site - pain managed with Percocet. AAO x 3; A-fib
on monitor; Will continue to monitor and assess.
--- NOTE | 2024-01-13 07:46 | W.PN.CARDCBS ---
Today's Communication / Plan
-
Cont post op care
Has been constipated and primary service working on his bowel regimen.
He has perm aFib and HR and bp stable on Toprol and Cardizem.
Resume Eliquis once ok with urology. Hemoglobin stable at 11.2
Cont pulm toilet. Encouraged to continue CPAP at night. He is not on CPAP at home.
Cont home O2.
Creatinine improved and has normalized. Patient will remain off Cozaar. Would only continue Toprol and diltiazem upon discharge
Resume Bumex, outpatient dosing 2 mg p.o. BID. Wt is overall stable. Cr 2.1 on Jan 11 and now 1.3 on Jan 12.
Impression / Plan
-
.
Primary Brake Machine Operator: Dr. Rodrigez
Impression:
L renal mass s/p robotic assisted L nephrectomy 01/09/24
Chronic HFpEF
Pulmonary hypertension
COPD on chronic oxygen dependence
Permanent atrial fibrillation
Chronic OAC with eliquis
HTN
HLD
Chronic anemia
Obesity
history of colon cancer s/p colectomy 10/2021
Depression/anxiety
ECHO 10/2021: Definity contrast was used, EF 50 to 55%, no regional wall motion abnormalities, posterior MAC, trace MR, mildly dilated LA, mild TR, PAP 56 mmHg, severely dilated right atrium, mildly enlarged RV size
Echo December 2023, EF 55 to 60%, mild LVH, mild TR with PA pressure 39
Plan:
-Patient underwent robotic assisted left nephrectomy 01/09/2024.
Cont post op care
Has been constipated and primary service working on his bowel regimen.
He has perm aFib and HR and bp stable on Toprol and Cardizem.
Resume Eliquis once ok with urology. Hemoglobin stable at 11.2
Cont pulm toilet. Encouraged to continue CPAP at night. He is not on CPAP at home.
Cont home O2. Pulmonary following
Creatinine improved and has normalized. Patient will remain off Cozaar. Would only continue Toprol and diltiazem upon discharge
Resume Bumex, outpatient dosing 2 mg p.o. BID. Wt is overall stable. Cr 2.1 on Jan 11 and now 1.3 on Jan 12.
Chest xray Jan 08: bibasilar opacities which may represent atelectasis
Echo December 2023, EF 55 to 60% with PA pressure 39.
Progress Note - Brake Machine Operator
Subjective
Date of Service: January 13, 2024
Patient seen and examined. No chest pain.
Objective
Labs:
Labs
Hgb 11.2 g/dL (13.0-18.0) L 01/12/24 04:46
Hct 36.1 % (39.0-52.0) L 01/12/24 04:46
Plt Count 195 10^3/uL (130-400) 01/12/24 04:46
Sodium 134 mmol/L (135-145) L 01/12/24 04:46
Potassium 5.2 mmol/L (3.5-5.1) H 01/12/24 04:46
BUN 45 mg/dl (9-20) H 01/12/24 04:46
Creatinine 2.1 mg/dL (0.7-1.3) H 01/12/24 04:46
Glucose 136 mg/dl (70-99) H 01/12/24 04:46
Vital Signs and I&O:
Vital Signs
Temp Pulse Resp BP Pulse Ox
98.2 F 79 13 124/65 96
01/13/24 07:00 01/13/24 06:00 01/13/24 06:00 01/13/24 06:00 01/13/24 06:00
Vital Signs
Temp Pulse Resp BP Pulse Ox
98.2 F 79 13 124/65 96
01/13/24 07:00 01/13/24 06:00 01/13/24 06:00 01/13/24 06:00 01/13/24 06:00
Intake & Output
01/11/24 01/12/24 01/13/24 01/14/24
06:59 06:59 06:59 06:59
Intake Total 960 / 960
Output Total 1000 / 1000 643 / 643 1735 / 1735
Balance -40 / -40 -643 / -643 -1735 / -1735
Physical Exam
Physical Exam
General: No acute distress, AAOX3
Neck: Negative JVD
Heart: Irregular irregular,, Negative S3 positive S1/S2, Negative S4, No murmur
Lungs: CTA b/l, negative wheezes/rales/rhonchi
Abd: Morbid obesity. Positive BS, NT/ND, neg rebound/rigidity/guarding
Ext: Negative cyanosis/clubbing/edema
Neuro: nonfocal
[2024-01-13] MEDS: SPIRIVA RESPIMAT 2.5 MCG 2 PUFF INH (07:50)
[2024-01-13] MEDS: SYMBICORT 80/4.5 MCG INHALER 2 PUFF INH ×2 (07:50→19:50)
[2024-01-13 08:15] LABS: Hematocrit 33.5 % (39.0-52.0); Mean Corp Hgb Conc. 32.8 g/dL (33.0-37.0); Mean Corpuscular Hgb 31.1 pg (27.0-31.0); Mean Corpuscular Volume 94.6 fL (80.0-94.0); Mean Platelet Volume 9.8 fL (7.4-10.4); Platelet Count 186 10^3/uL (130-400); Red Blood Cell Count 3.54 10^6/uL (4.70-6.10); Red Cell Dist. Width 13.2 % (11.5-14.5); White Blood Cell Count 10.8 10^3/uL (4.8-10.8)
[2024-01-13 08:20] LABS: Blood Urea Nitrogen 34 mg/dl (9-20); Calcium 8.7 mg/dl (8.4-10.2); Carbon Dioxide 33 mmol/L (22-30); Chloride 93 mmol/L (98-107); Estimated Creatinine Clearance 67 ml/min; Glucose 141 mg/dl (70-99); Sodium 134 mmol/L (135-145); eGFR 57.65
--- NOTE | 2024-01-13 10:27 | W.PN.URO.CBU ---
Today's Communication / Plan
-
try and transfer to [place] [facility]ist [facility] no new gu interventuns
Assessment / Plan
-
stable
no obvuos blled afte resuming eleiquis for now plan per hospitalist transfer [facility] seems best option will remove curt on discharge
Diagnosis
-
Date of Service: January 13, 2024
-
Patient Diagnosis:
Post Op Day:
Patient Diagnosis:
Post Op Day:
Patient Diagnosis:
Post Op Day:
Patient Diagnosis: Left Renal Mass s/p Hand-assisted laparoscopic radical nephrectomy
Post Op Day: 2
Subjective
-
good result from enema pssibvly some sleep apne no acute problems
Objective
-
Vital Signs
Temp Pulse Resp BP Pulse Ox
98.2 F 76 16 124/65 97
01/13/24 07:00 01/13/24 07:51 01/13/24 07:51 01/13/24 06:00 01/13/24 07:51
Intake and Output
01/12/24 01/13/24 01/14/24
06:59 06:59 06:59
Output Total 643 / 643 1735 / 1735 85 / 85
Balance -643 / -643 -1735 / -1735 -85 / -85
Output:
Drain Output (Total) 143 / 143 310 / 310 85 / 85
Left Lower Abdomen Sharif- 143 / 143 310 / 310 85 / 85
Fowler
Urine, Voided 500 / 500 1425 / 1425
Laboratory Results
01/13/24 07:50
01/13/24 07:50
Review of Systems
-
Respiratory: Trouble Breathing
: No Symptoms
Physical Exam
-
General - well developed, well nourished, no acute distress
Chest - clear bilaterally
Abdomen - soft, non-tender, positive bowel sounds, no CVAT, no incisional pain or distention
Genitalia - normal
Rectal - normal
Skin - warm & dry with no rash
Neuro - AOx3, no motor deficits
Extremities - no clubbing, no cyanosis, no edema
Incision - clean, dry
Dressing - clean, dry, intact
Care Review
Data Reviewed
Discussed with: Hospitalist and Nursing
[2024-01-13] MEDS: MIRALAX 17 GRAMS PO (11:59)
[2024-01-13] MEDS: SENOKOT-S 2 TABLET PO ×2 (11:59→20:29)
[2024-01-13] MEDS: PROTONIX 40 MG PO (11:59)
[2024-01-13] MEDS: LEXAPRO 5 MG PO (12:00)
[2024-01-13] MEDS: COLACE 100 MG PO ×2 (12:00→20:29)
[2024-01-13] MEDS: DUPHALAC/CHRONULAC 20 GRAMS PO ×2 (12:00→20:29)
--- NOTE | 2024-01-13 12:38 | W.PN.PUL.V3 ---
Today's Communication / Plan
-
BiPAP at night
Wean oxygen
Continue inhalers
Diuresis per cardiology
Outpatient sleep disorders/pulmonary follow-up
Assessment
-
Patient is a 73-year-old male with previous history of severe COPD, chronic hypoxic respiratory failure on O2, chronic A-fib, hypertension, diastolic heart failure presenting for elective nephrectomy for history of left renal mass. Underwent
procedure and postoperatively developed hypoxemia for which she was placed on BiPAP. ABG obtained indicating mild acute respiratory acidosis. He has evidence of obesity hypoventilation syndrome. He was told 2 years ago that he needed a sleep
study but did not follow-up. He is currently in PACU on BiPAP and tolerating device well.
Acute on chronic hypoxic/hypercarbic respiratory failure
Suspect PRISCILLA/OHS
Likely with postoperative atelectasis
Renal mass status post elective nephrectomy 01/09/24
Leukocytosis
Hyperglycemia
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
Prostate Cancer
Anxiety
HTN
Depression
Chronic Anemia
Severe COPD/bronchitis
Currently on Trelegy, 12/2023-FEV1 0.95L 29%, FVC 1.47L 33%, ratio 65.
08/31/20 from OSH- FEV1 32%, FVC 40%, ratio 63. TLC 53%, DLCO 60%
Moderately severe RLD
Diastolic-CHF
A-Fib
PAD s/p Aorto-biliac arteriogram, LLE arteriogram 11/30/20
Osteoporosis
Rheumatoid arthritis
Colon cancer s/p Robotic Right Colectomy
Hiatal hernia repair
L knee injections x3
R knee injection
Left Carpal tunnel release 10/27/22
Suspected PRISCILLA, supposed to obtain sleep study/did not follow up
Obesity BMI 38
Plan
Respiratory status is relatively stable
Postoperative hypoxemia is likely due to pulmonary insufficiency/atelectasis post procedure
Incentive spirometry-encouraged
Aspiration precautions
Continue supplemental oxygen-attempt to wean-he is usually on 2 L with exertion
PRISCILLA suspected or obesity hypoventilation syndrome, was instructed to get sleep study 2 years prior but did not follow up
ABG showing pH 7.31/CO2 64 indicating-obesity hypoventilation syndrome
Continue BIPAP overnight as tolerated-encouraged
We discussed need for OP testing and set up--this has been arranged as PSG/titration/immediate set up
He has been refusing now-we encouraged him to continue using nightly
Prior history of lung disease is noted including severe COPD on Trelegy
Prior PFTs reviewed indicating FEV1 of 29%
Resume home inhalers
He also has comorbid history of restrictive lung disease, diastolic heart failure
Prior ECHO results are reviewed indicating stable function with moderate pulmonary hypertension
This has not been repeated since 2021
Cautious fluid administration, resumption of home diuretic
If stalling on his oxygen weaning, may consider cardiology input
proBNP--1140
Cardiology following-correspondence reviewed
Weight loss measures recommended
Obesity likely contributing to respiratory symptoms
DVT prophylaxis recommended
GI prophylaxis-on pantoprazole
Nutrition
Physical therapy
Reviewed with nursing
Will need outpatient pulmonary evaluation in our office at discharge
Diagnostic Data
Chest X-Ray: 01/09/24-Bibasilar opacities which may represent atelectasis or potentially postprocedural change. No pneumothorax.
CT Scan: [facility] 12/19/23- 1. Post colonic resection. No bowel obstruction. As above, fat attenuation structure in anterior right abdomen with surrounding soft tissue attenuation probably old fat necrosis or chronic partial omental infarct related to
previous surgery.
2. Heterogeneously enhancing left renal mass measuring up to 6.5 cm in diameter, highly suspicious for renal cell carcinoma. There are some mildly enlarged retroperitoneal lymph nodes as above, metastatic involvement cannot be excluded.
3. Elevation left hemidiaphragm with adjacent atelectatic change. Trace left pleural effusion.
4. Dilation of the main pulmonary artery as seen previously, question pulmonary hypertension.
5. Mild irregularity of the hepatic capsular contour and enlarged left lobe, early change of cirrhosis is a differential consideration. No specific findings suggestive of portal hypertension.
6. Cholelithiasis.
11/05/21- 1. Focal area of thickening involving the transverse colon, likely corresponding to the patient's known transverse colon mass. No mesenteric lymphadenopathy is appreciated.
2. No evidence of hepatic metastasis.
3. Groundglass nodule at the right lung apex, measuring 7 mm in diameter. No additional lung nodules are appreciated. This nodule is indeterminate, and should be followed with imaging.
4. Prominence of the main pulmonary trunk, suggestive of pulmonary arterial hypertension in the correct clinical setting.
5. Mild cardiomegaly. Moderate coronary arterial calcification. Please correlate with symptoms of and risk factors for coronary artery disease, with further workup as clinically appropriate.
6. Cholelithiasis without evidence of acute cholecystitis.
Echo: 11/07/21-Normal left ventricular size, wall thickness and systolic function. No regional wall motion abnormalities are seen. LV ejection fraction is 50-55% by Chandler's method of discs. Diastolic function indeterminate due to atrial
fibrillation. Definity contrast was used. Mitral valve opens normally. Posterior mitral annular calcification. Trace mitral regurgitation. Mildly dilated left atrium. Tricuspid valve opens normally. Mild tricuspid regurgitation. Estimated pulmonary
artery pressure of 56 mmHg assuming a right atrial pressure of 8 mmHg.Severely dilated right atrium. Mildly enlarged right ventricular size. Normal right ventricular systolic function. Since echocardiogram November 2020 which was reviewed, there is
no significant change.
PFT's 12/2023-- FEV1 0.95L 29%, FVC 1.47L 33%, ratio 65.
08/31/20 from OSH- FEV1 32%, FVC 40%, ratio 63. TLC 53%, DLCO 60%
6MWT 12/06/23- 6 minute walk test performed and reconfirmed his exertional hypoxemia. Desaturated to 85% after [address] and titrated to 2 L and maintained an oxygen saturation of 93-94%. Exertional tachycardia noted at 150-160 bpm.
Reports and relevant images were personally reviewed.
Subjective Data
-
Date of Service:
Date of Service: January 13, 2024
Chief Complaint: Pulmonary Follow Up and Dyspnea Follow Up
Subjective:
Resting comfortably, no complaints of worsening shortness of breath, chest pain or abdominal pain
Review of Systems
General: Other (Per HPI)
Objective Data
Data Reviewed
Vital Signs / I&O:
Vital Signs
Temp Pulse Resp BP Pulse Ox
98.2 F 85 21 122/68 95
01/13/24 11:00 01/13/24 10:00 01/13/24 10:00 01/13/24 10:00 01/13/24 10:00
Intake and Output
01/12/24 01/13/24 01/14/24
06:59 06:59 06:59
Output Total 643 / 643 1735 / 1735 85 / 85
Balance -643 / -643 -1735 / -1735 -85 / -85
SaO2: 95
Nasal Cannula flow liters per minute: 2
Physical Exam
General: Respiratory Distress (n), Comfortable and Other (NAD)
HEENT: Normocephalic, Anicteric and Moist Mucous Membranes
Cardiovascular: Regular Rhythm and Peripheral Edema (discoloration noted)
Respiratory: Clear and Non-Labored Respirations
GI: Soft, Non Distended and Non Tender
Neurology: Awake, Alert and No Motor Deficits
Skin: Warm, Dry, Good Color and Cyanosis (n)
Labs/Micro/Reports
Lab Data
01/13/24 07:50
01/13/24 07:50
[2024-01-13 14:12] LABS: NT-proBNP 2540 pg/ml
[2024-01-13] MEDS: BUMEX PO (16:56)
--- NOTE | 2024-01-13 16:56 | W.PN.HOSP.TC ---
Today's Communication/Plan
-
Stable for telemetry
Assessment / Plan
Assessment / Plan
73-year-old male with a past medical history of colon cancer status post right colectomy, COPD, former smoker, chronic hypoxic respiratory failure on 2-3 L at baseline, CHF, atrial fibrillation on Eliquis, CAD, CKD, hypertension, and type 2 diabetes
who presents with postoperative hypoxia after undergoing a radical left nephrectomy for left renal mass consistent with malignancy. Nursing staff reports that patient was hypoxic postoperatively. He does have a history of known COPD, and requires
2-3 L at baseline at all times. Currently patient is lethargic and on Bipap. He denies shortness of breath, denies chest pain. No coughing, no wheezing. No fever, no nausea, no vomiting. No black or bloody stools. He follows with Dr. Maddy Frost.
#Acute on chronic hypoxemic and hypercapnic respiratory failure
#COPD
#Probable obesity hypoventilation syndrome
#Probable PRISCILLA
Suspect secondary to anesthesia, obesity hypoventilation syndrome, with baseline COPD
Patient requires 2 to 3 L at baseline
Appreciate pulmonology input, ABGs improved on BiPAP
Currently on 2 L of oxygen, wean as tolerated
Continue BiPAP at bedtime, patient needs to follow-up with pulmonology for sleep study
#Left renal mass consistent with malignancy status post left nephrectomy 01/09/24
#History of prostate cancer
Plan of care as per primary, pain control, PT/OT, laxatives
Follow-up on pathology
#Acute kidney injury
Creatinine 1.3, 2.1, was 1.8, was 1.2
Resolved, trend creatinine, no nephrotoxic drugs/NSAIDs
#Chronic HFpEF
Patient's Bumex has been held secondary to VICKIE
VICKIE resolved, will give Bumex 2 mg IV x 1
Resume Bumex 2 mg p.o. twice daily tomorrow
#Permanent afib since 2011 despite ablation in 2006
Cardiology consulted, continue diltiazem and metoprolol for rate control with hold parameters
Cleared by urology to resume Eliquis 01/12 PM
#Constipation
Resolved with enema, continue laxatives
#Hyperkalemia
Resolved status post Lokelma
#Hypotension
Resolved with holding losartan
#CAD
Continue statin, metoprolol
#Benign essential hypertension
Continue metoprolol, diltiazem
Cardiology recommends permanently discontinuing losartan
#Colon cancer status post right colectomy 11/09/2023
#History of diabetes
Hemoglobin A1c 6.2
#GERD
Continue PPI
#Anxiety/depression
Continue SSRI, trazodone
#Obesity due to excess calories
Affects all aspects of care
DVT prophylaxis�Eliquis
Full code
Dispo - PT rec SNF
We will follow the patient along with you.
Total time spent to see the patient on the floor, examine the patient, review data and lab results, discuss treatment plan with patient, nursing staff around 50 minutes.
Physical Exam
General: Obese, no acute distress
HEENT: Normocephalic, Atraumatic, EOMI, MMM
Respiratory: Clear to Auscultation bilaterally
Cardiac: Normal S1/S2, Regular Rate and Rhythm
GI: Soft, distended, left flank tenderness noted, JAXON drain with serosanguineous drainage
Extremities: No Clubbing, Cyanosis, or Edema
Neuro: Nonfocal/Grossly Intact
Psych: Calm, Cooperative
Anticipated Discharge: 24 - 48 hours
Subjective/Interval History
-
Date of Service: January 13, 2024
Patient reports coughing and shortness of breath. He also complains of back pain and left flank pain. No fever, no vomiting.
Objective Data
-
Labs:
Laboratory Results
01/13/24
07:50
WBC 10.8
Hgb 11.0 L
Hct 33.5 L
Plt Count 186
Sodium 134 L
Potassium 5.0
Chloride 93 L
Carbon Dioxide 33 H
BUN 34 H
Creatinine 1.3
Glucose 141 H
Calcium 8.7
Vital Signs:
Vital Signs
Temp Pulse Resp BP Pulse Ox
98.2 F 76 16 124/65 97
01/13/24 07:00 01/13/24 07:51 01/13/24 07:51 01/13/24 06:00 01/13/24 07:51
I&O
01/12/24 01/13/24 01/14/24
06:59 06:59 06:59
Output Total 643 / 643 1735 / 1734
Balance -643 / -643 -1735 / -1735
[2024-01-13] MEDS: TOPROL XL 100 MG PO (18:14)
[2024-01-13] MEDS: BUMEX 2 MG IV (18:15)
[2024-01-13] MEDS: LIPITOR 20 MG PO (18:15)
[2024-01-13] MEDS: CARDIZEM CD 120 MG PO (18:15)
[2024-01-13] MEDS: TYLENOL 650 MG PO (20:42)
[2024-01-13] MEDS: DESYREL 150 MG PO (22:33)
[2024-01-13] MEDS: MELATONIN 10 MG PO (22:33)
[2024-01-14] VITALS (13 sets, daily range): BP systolic 105–169; BP diastolic 56–106; PULSE 90–156; BMI 39.0
--- NOTE | 2024-01-14 05:36 | PTCARENOTE ---
Left JAXON drain dressing found saturated; Site redressed and noted to be saturated again a few hours later, dressing reinforced with ABD at that time. Pt denies any increased pain at site. Area cleansed and new dressing applied and secured with
Tegaderm and tape. Will continue to monitor and assess,
[2024-01-14 06:03] LABS: Hematocrit 36.2 % (39.0-52.0); Hemoglobin 11.6 g/dL (13.0-18.0); Mean Corpuscular Hgb 30.6 pg (27.0-31.0); Mean Corpuscular Volume 95.5 fL (80.0-94.0); Platelet Count 203 10^3/uL (130-400); Red Blood Cell Count 3.79 10^6/uL (4.70-6.10); Red Cell Dist. Width 13.2 % (11.5-14.5); White Blood Cell Count 13.8 10^3/uL (4.8-10.8)
[2024-01-14 06:16] LABS: Blood Urea Nitrogen 32 mg/dl (9-20); Calcium 8.8 mg/dl (8.4-10.2); Carbon Dioxide 39 mmol/L (22-30); Chloride 90 mmol/L (98-107); Estimated Creatinine Clearance 73 ml/min; Glucose 148 mg/dl (70-99); Potassium 4.8 mmol/L (3.5-5.1); Sodium 135 mmol/L (135-145); eGFR > 60.00
[2024-01-14] MEDS: SPIRIVA RESPIMAT 2.5 MCG 2 PUFF INH (07:52)
[2024-01-14] MEDS: SYMBICORT 80/4.5 MCG INHALER 2 PUFF INH ×2 (07:53→19:20)
--- NOTE | 2024-01-14 08:03 | W.PN.HOSP.TC ---
Today's Communication/Plan
-
Resume Eliquis if okay with urology
Discharge planning
Assessment / Plan
Assessment / Plan
Gen-AAOx3, NAD, obese
HEENT-NC, AT, anicteric, clear oral mm
Neck-supple
CV-reg, no M, +S1/S2
Lungs-clear B/L
Abd-soft, NT, ND
Ext-no edema
Musculoskeletal-no cyanosis, clubbing
Skin-warm and dry, bilateral lower extremity hyperpigmentation
Neuro-grossly non-focal
Psych-calm, cooperative
Acute on chronic hypoxemic and hypercapnic respiratory failure
#COPD
#Probable obesity hypoventilation syndrome
#Probable PRISCILLA
Suspect secondary to anesthesia, obesity hypoventilation syndrome, with baseline COPD
Patient requires 2 to 3 L at baseline, currently back to baseline 3 L.
Continue BiPAP at bedtime, patient needs to follow-up with pulmonology for sleep study
Left renal mass consistent with malignancy status post left nephrectomy 01/09/24
History of prostate cancer
Plan of care as per primary, pain control, PT/OT, laxatives
Follow-up on pathology
VICKIE resolved.
Chronic HFpEF
Patient's Bumex has been held secondary to VICKIE
VICKIE resolved, will give Bumex 2 mg IV x 1
Resume Bumex 2 mg p.o. twice daily tomorrow
Permanent afib since 2011 despite ablation in 2006. Will check with urology regarding resumption of Eliquis today. Sent [place] text to Dr. Núñez.
Constipation
Resolved with enema, continue laxatives
Hyperkalemia -resolved.
Hypotension -Resolved with holding losartan
CAD
Continue statin, metoprolol
Essential hypertension
Continue metoprolol, diltiazem
Cardiology recommends permanently discontinuing losartan
Hx Colon cancer status post right colectomy 11/09/2023
DM2 without hyperglycemia - Hemoglobin A1c 6.2. Diet controlled.
GERD
Continue PPI
Anxiety/depression
Continue SSRI, trazodone
Morbid obesity due to excess calories
Full code
Dispo -medically stable for discharge to SNF. Case management aware.
Anticipated Discharge: Within 24 hours
Subjective/Interval History
-
Date of Service: January 14, 2024
Patient seen and examined. No complaints.
Objective Data
-
Labs:
Laboratory Results
01/14/24
05:40
WBC 13.8 H
Hgb 11.6 L
Hct 36.2 L
Plt Count 203
Sodium 135
Potassium 4.8
Chloride 90 L
Carbon Dioxide 39 H
BUN 32 H
Creatinine 1.2
Glucose 148 H
Calcium 8.8
Vital Signs:
Vital Signs
Temp Pulse Resp BP Pulse Ox
98.7 F 90 16 144/73 94
01/13/24 23:26 01/14/24 06:00 01/14/24 06:00 01/14/24 06:00 01/14/24 02:15
I&O
01/13/24 01/14/24 01/15/24
06:59 06:59 06:59
Intake Total 2099
Output Total 1735 / 1735 2245 / 2245
Balance -1735 / -1735 -145 / -145
Review of Systems
-
History Source: Patient
All other systems: Reviewed and negative
[2024-01-14] MEDS: SENOKOT-S 2 TABLET PO ×2 (08:25→21:10)
[2024-01-14] MEDS: COLACE 100 MG PO ×2 (08:25→21:09)
[2024-01-14] MEDS: PROTONIX 40 MG PO (08:25)
[2024-01-14] MEDS: LEXAPRO 5 MG PO (08:25)
[2024-01-14] MEDS: DUPHALAC/CHRONULAC 20 GRAMS PO ×2 (08:26→21:10)
[2024-01-14] MEDS: BUMEX 2 MG PO ×2 (08:26→15:39)
[2024-01-14] MEDS: MIRALAX 17 GRAMS PO (08:26)
--- NOTE | 2024-01-14 09:20 | W.PN.CARDCBS ---
Today's Communication / Plan
-
Resume Eliquis if ok with urology
Cont Bumex
Outpt cardiac follow up.
Impression / Plan
-
.
Primary Lieutenant/Deputy: Dr. Rodrigez
Impression:
L renal mass s/p robotic assisted L nephrectomy 01/09/24
Chronic HFpEF
Pulmonary hypertension
COPD on chronic oxygen dependence
Permanent atrial fibrillation
Chronic OAC with eliquis
HTN
HLD
Chronic anemia
Obesity
history of colon cancer s/p colectomy 10/2021
Depression/anxiety
ECHO 10/2021: Definity contrast was used, EF 50 to 55%, no regional wall motion abnormalities, posterior MAC, trace MR, mildly dilated LA, mild TR, PAP 56 mmHg, severely dilated right atrium, mildly enlarged RV size
Echo December 2023, EF 55 to 60%, mild LVH, mild TR with PA pressure 39
Plan:
-Patient underwent robotic assisted left nephrectomy 01/09/2024.
Cont post op care
He has perm aFib and HR and bp stable on Toprol and Cardizem.
Resume Eliquis if ok with urology. Hemoglobin stable
Cont pulm toilet. Encouraged to continue CPAP at night. He is not on CPAP at home.
Cont home O2.
Creatinine improved and has normalized. Patient will remain off Cozaar. Would only continue Toprol and diltiazem upon discharge
Bumex resumed, outpatient dosing 2 mg p.o. BID. Wt is overall stable. Cr stable.
Please recall if needed. Will arrange outpt follow up.
Progress Note - Lieutenant/Deputy
Subjective
Date of Service: January 14, 2024
Pt seen and examined. No complaints. No chest pain or shortness of breath.
Objective
Labs:
01/14/24 05:40
01/14/24 05:40
Labs
Hgb 11.6 g/dL (13.0-18.0) L 01/14/24 05:40
Hct 36.2 % (39.0-52.0) L 01/14/24 05:40
Plt Count 203 10^3/uL (130-400) 01/14/24 05:40
Sodium 135 mmol/L (135-145) 01/14/24 05:40
Potassium 4.8 mmol/L (3.5-5.1) 01/14/24 05:40
BUN 32 mg/dl (9-20) H 01/14/24 05:40
Creatinine 1.2 mg/dL (0.7-1.3) 01/14/24 05:40
Glucose 148 mg/dl (70-99) H 01/14/24 05:40
Vital Signs and I&O:
Vital Signs
Temp Pulse Resp BP Pulse Ox
98.1 F 88 18 144/73 94
01/14/24 07:22 01/14/24 07:54 01/14/24 07:54 01/14/24 06:00 01/14/24 02:15
Vital Signs
Temp Pulse Resp BP Pulse Ox
98.1 F 88 18 144/73 94
01/14/24 07:22 01/14/24 07:54 01/14/24 07:54 01/14/24 06:00 01/14/24 02:15
Intake & Output
01/12/24 01/13/24 01/14/24 01/15/24
06:59 06:59 06:59 06:59
Intake Total 2099 / 2099
Output Total 643 / 643 1735 / 1735 2245 / 2245
Balance -643 / -643 -1735 / -1735 -145 / -145
Physical Exam
Physical Exam
General: No acute distress, AAOX3
Neck: Negative JVD
Heart: Irregularly irregular, Negative S3 positive S1/S2, Negative S4, No murmur
Lungs: CTA b/l, negative wheezes/rales/rhonchi
Abd: Morbid obesity. Positive BS, NT/ND, neg rebound/rigidity/guarding
Ext: Negative cyanosis/clubbing/edema
Neuro: nonfocal
--- NOTE | 2024-01-14 10:20 | W.PN.PUL3 ---
Today's Communication / Plan
-
Continue BiPAP as able-patient not using. Unable to tolerate. Can be readdressed in the future in the outpatient set
Pulmonary follow-up strongly encouraged
Avoid sedatives
Continue diuresis
Continue ox supplementation
I agree with discharge planning
Assessment
-
Patient is a 73-year-old male with previous history of severe COPD, chronic hypoxic respiratory failure on O2, chronic A-fib, hypertension, diastolic heart failure presenting for elective nephrectomy for history of left renal mass. Underwent
procedure and postoperatively developed hypoxemia for which she was placed on BiPAP. ABG obtained indicating mild acute respiratory acidosis. He has evidence of obesity hypoventilation syndrome. He was told 2 years ago that he needed a sleep
study but did not follow-up. He is currently in PACU on BiPAP and tolerating device well.
Acute on chronic hypoxic/hypercarbic respiratory failure
Suspect PRISCILLA/OHS
Likely with postoperative atelectasis
Renal mass status post elective nephrectomy 01/09/24
Leukocytosis
Hyperglycemia
Conditions present [employer]
Prostate Cancer
Anxiety
HTN
Depression
Chronic Anemia
Severe COPD/bronchitis
Currently on Trelegy, 12/2023-FEV1 0.95L 29%, FVC 1.47L 33%, ratio 65.
08/31/20 from OSH- FEV1 32%, FVC 40%, ratio 63. TLC 53%, DLCO 60%
Moderately severe RLD
Diastolic-CHF
A-Fib
PAD s/p Aorto-biliac arteriogram, LLE arteriogram 11/30/20
Osteoporosis
Rheumatoid arthritis
Colon cancer s/p Robotic Right Colectomy
Hiatal hernia repair
L knee injections x3
R knee injection
Left Carpal tunnel release 10/27/22
Suspected PRISCILLA, supposed to obtain sleep study/did not follow up
Obesity BMI 38
Plan
Respiratory status is relatively stable- on low rate supplemental oxygen.
Postoperative hypoxemia is likely due to pulmonary insufficiency/atelectasis post procedure.
Incentive spirometry-encouraged
Aspiration precautions
Continue supplemental oxygen-attempt to wean-he is usually on 2 L with exertion
PRISCILLA suspected or obesity hypoventilation syndrome, was instructed to get sleep study 2 years prior but did not follow up
ABG showing pH 7.31/CO2 64 indicating-obesity hypoventilation syndrome
Continue BIPAP overnight as tolerated-encouraged- Pt not tolerating, says that he is claustrophobic.
We discussed need for OP testing and set up--this has been arranged as PSG/titration/immediate set up
has been refusing now-we encouraged him to continue using nightly
Avoid sedatives.
Prior history of lung disease is noted including severe COPD on Trelegy
Not bronchospastic on exam 01/14/2024
Prior PFTs reviewed indicating FEV1 of 29%
Resume home inhalers
He also has comorbid history of restrictive lung disease, diastolic heart failure
Prior ECHO results are reviewed indicating stable function with moderate pulmonary hypertension
This has not been repeated since 2021
Cont. diuretics per cardiology.
proBNP--1140
Cardiology following-correspondence reviewed
Weight loss measures recommended
Obesity likely contributing to respiratory symptoms
DVT prophylaxis recommended- restart AC per Urology.
GI prophylaxis-on pantoprazole
Reviewed with nursing
Will need outpatient pulmonary evaluation in our office at discharge, agree with discharge planning.

Diagnostic Data
Chest X-Ray: 01/09/24-Bibasilar opacities which may represent atelectasis or potentially postprocedural change. No pneumothorax.
CT Scan: [facility] 12/19/23- 1. Post colonic resection. No bowel obstruction. As above, fat attenuation structure in anterior right abdomen with surrounding soft tissue attenuation probably old fat necrosis or chronic partial omental infarct related to
previous surgery.
2. Heterogeneously enhancing left renal mass measuring up to 6.5 cm in diameter, highly suspicious for renal cell carcinoma. There are some mildly enlarged retroperitoneal lymph nodes as above, metastatic involvement cannot be excluded.
3. Elevation left hemidiaphragm with adjacent atelectatic change. Trace left pleural effusion.
4. Dilation of the main pulmonary artery as seen previously, question pulmonary hypertension.
5. Mild irregularity of the hepatic capsular contour and enlarged left lobe, early change of cirrhosis is a differential consideration. No specific findings suggestive of portal hypertension.
6. Cholelithiasis.
11/05/21- 1. Focal area of thickening involving the transverse colon, likely corresponding to the patient's known transverse colon mass. No mesenteric lymphadenopathy is appreciated.
2. No evidence of hepatic metastasis.
3. Groundglass nodule at the right lung apex, measuring 7 mm in diameter. No additional lung nodules are appreciated. This nodule is indeterminate, and should be followed with imaging.
4. Prominence of the main pulmonary trunk, suggestive of pulmonary arterial hypertension in the correct clinical setting.
5. Mild cardiomegaly. Moderate coronary arterial calcification. Please correlate with symptoms of and risk factors for coronary artery disease, with further workup as clinically appropriate.
6. Cholelithiasis without evidence of acute cholecystitis.
Echo: 11/07/21-Normal left ventricular size, wall thickness and systolic function. No regional wall motion abnormalities are seen. LV ejection fraction is 50-55% by Chandler's method of discs. Diastolic function indeterminate due to atrial
fibrillation. Definity contrast was used. Mitral valve opens normally. Posterior mitral annular calcification. Trace mitral regurgitation. Mildly dilated left atrium. Tricuspid valve opens normally. Mild tricuspid regurgitation. Estimated pulmonary
artery pressure of 56 mmHg assuming a right atrial pressure of 8 mmHg.Severely dilated right atrium. Mildly enlarged right ventricular size. Normal right ventricular systolic function. Since echocardiogram November 2020 which was reviewed, there is
no significant change.
PFT's 12/2023-- FEV1 0.95L 29%, FVC 1.47L 33%, ratio 65.
08/31/20 from OSH- FEV1 32%, FVC 40%, ratio 63. TLC 53%, DLCO 60%
6MWT 12/06/23- 6 minute walk test performed and reconfirmed his exertional hypoxemia. Desaturated to 85% after [address] and titrated to 2 L and maintained an oxygen saturation of 93-94%. Exertional tachycardia noted at 150-160 bpm.
Reports and relevant images were personally reviewed.
Subjective Data
-
Date of Service:
Date of Service: January 14, 2024
Chief Complaint: Pulmonary Follow Up and Dyspnea Follow Up
Subjective:
Denies shortness of breath at rest, does have shortness of breath with any activity
States that he was not able to use BiPAP last night due to claustrophobia
Denies cough or phlegm production
Review of Systems
Cardiopulmonary: Dyspnea, Dyspnea on Exertion and Cough (n)
GI: Abdominal Pain (n)
Objective Data
Data Reviewed
Vital Signs / I&O / Oxygen:
Vital Signs
Temp Pulse Resp BP Pulse Ox
98.1 F 88 18 144/73 94
01/14/24 07:22 01/14/24 07:54 01/14/24 07:54 01/14/24 06:00 01/14/24 02:15
Intake and Output
01/13/24 01/14/24 01/15/24
06:59 06:59 06:59
Intake Total 2099 / 2099
Output Total 1735 / 1735 2245 / 2245
Balance -1735 / -1735 -145 / -145
SaO2 94
Nasal Cannula flow liters per 3
minute
Physical Exam
General: Respiratory Distress (n), Comfortable and Other (NAD)
HEENT: Normocephalic, Anicteric and Moist Mucous Membranes
Cardiovascular: Regular Rhythm and Peripheral Edema (discoloration noted)
Respiratory: Clear and Non-Labored Respirations
GI: Soft, Non Distended and Non Tender
Neurology: Awake, Alert and No Motor Deficits
Skin: Warm, Dry, Good Color and Cyanosis (n)
Labs/Micro/Reports
Lab Data
01/14/24 05:40
01/14/24 05:40
--- NOTE | 2024-01-14 12:18 | W.PN.URO.CBU ---
Today's Communication / Plan
-
await disposiotion from hosp[ital; try and use 1 perccet prn rather than 2 [ uc-se oxycodone not
Assessment / Plan
-
stable
no obvuos blled afte resuming eleiquis for now plan per hospitalist transfer sbnf seems best option will remove curt on discharge
Diagnosis
-
Date of Service: January 14, 2024
-
Patient Diagnosis:
Post Op Day:
Patient Diagnosis:
Post Op Day:
Patient Diagnosis:
Post Op Day:
Patient Diagnosis:
Post Op Day:
Patient Diagnosis: Left Renal Mass s/p Hand-assisted laparoscopic radical nephrectomy
Post Op Day: 2
Subjective
-
some constipation exos mild sob but progressing
Objective
-
Vital Signs
Temp Pulse Resp BP Pulse Ox
98.1 F 88 18 144/73 94
01/14/24 07:22 01/14/24 07:54 01/14/24 07:54 01/14/24 06:00 01/14/24 02:15
Intake and Output
01/13/24 01/14/24 01/15/24
06:59 06:59 06:59
Intake Total 2099
Output Total 1735 / 1735 2245 / 2245 600 / 600
Balance -1735 / -1735 -145 / -145 -600 / -600
Intake:
Oral fluids 2099
Output:
Drain Output (Total) 310 / 310 445 / 445 100 / 100
Left Lower Abdomen Sharif- 310 / 310 445 / 445 100 / 100
Fowler
Urine, Voided 1425 / 1425 1800 / 1800 500 / 500
Other:
Number of approximated MODERATE 1
amounts of urine
How many times incontinent 1
SATURATED amount urine
Laboratory Results
01/14/24 05:40
01/14/24 05:40
Review of Systems
-
Abdomen/GI: Constipated
: Flank Pain
Physical Exam
-
General - well developed, well nourished, no acute distress
Chest - clear bilaterally
Abdomen - soft, non-tender, positive bowel sounds, no CVAT, no incisional pain or distention
Genitalia - normal
Rectal - normal
Skin - warm & dry with no rash
Neuro - AOx3, no motor deficits
Extremities - no clubbing, no cyanosis, no edema
Incision - clean, dry
Dressing - clean, dry, intact
Care Review
Data Reviewed
Discussed with: Hospitalist
--- NOTE | 2024-01-14 13:41 | PTCARENOTE ---
pt being transferred to room 336. report given to Juana. spoke with pts brother and updated as to plan of care. see nursing assessment and flowsheet.
--- NOTE | 2024-01-14 15:29 | CM ---
Patient with Hx Colon cancer s/p right colectomy 11/09/2023 who underwent robotic assisted left nephrectomy 01/09/24. O2 2L. JAXON Drain- per urology plan to remove on discharge. Regular diet. PT/OT recommend skilled rehab.
Met with patient and spoke with his brother Lucian; both agree to d/c to [facility] once insurance approves. IMM completed. Lucian would like CM to let him know when patient is leaving hospital.
Spoke with Laurita, s Director [facility], [facility] (ph [phone]); they are able to accept the patient once insurance approves.
Request for insurance auth submitted to [facility] via [employer] - Reference Number [id number].
Clinical info sent via [employer]ax.
Plan [facility] once insurance approves.
[2024-01-14 16:23] LABS: Glucose - Point of Care 171 mg/dl (70-99)
[2024-01-14] MEDS: CARDIZEM CD 120 MG PO (18:00)
[2024-01-14] MEDS: LIPITOR 20 MG PO (18:01)
[2024-01-14] MEDS: TOPROL XL 100 MG PO (18:01)
[2024-01-14] MEDS: DESYREL 150 MG PO (21:09)
[2024-01-14] MEDS: ELIQUIS 5 MG PO (21:09)
[2024-01-14] MEDS: MELATONIN 10 MG PO (21:09)
[2024-01-14] MEDS: PERCOCET 5/325 2 TABLET PO (21:33)
[2024-01-15 03:00] VITALS: BP 123/67
[2024-01-15 06:00] VITALS: BMI 38.1
[2024-01-15 07:49] VITALS: BP 119/63
[2024-01-15] MEDS: SPIRIVA RESPIMAT 2.5 MCG 2 PUFF INH (08:08)
[2024-01-15] MEDS: SYMBICORT 80/4.5 MCG INHALER 2 PUFF INH ×2 (08:08→19:34)
[2024-01-15] MEDS: DUPHALAC/CHRONULAC 20 GRAMS PO ×2 (08:24→21:21)
[2024-01-15] MEDS: SENOKOT-S 2 TABLET PO ×2 (08:24→21:21)
[2024-01-15] MEDS: BUMEX 2 MG PO ×2 (08:24→16:58)
[2024-01-15] MEDS: ELIQUIS 5 MG PO ×2 (08:24→21:21)
[2024-01-15] MEDS: PROTONIX 40 MG PO (08:24)
[2024-01-15] MEDS: LEXAPRO 5 MG PO (08:25)
[2024-01-15] MEDS: COLACE 100 MG PO ×2 (08:25→21:21)
[2024-01-15] MEDS: MIRALAX 17 GRAMS PO (08:25)
[2024-01-15] MEDS: TYLENOL 650 MG PO ×2 (08:31→16:57)
[2024-01-15 11:27] VITALS: BP 114/73
--- NOTE | 2024-01-15 13:38 | W.PN.HOSP.TC ---
Today's Communication/Plan
-
Cardiology follow-up
Assessment / Plan
Assessment / Plan
Gen-AAOx3, NAD, obese
HEENT-NC, AT, anicteric, clear oral mm
Neck-supple
CV-reg, no M, +S1/S2
Lungs-clear B/L
Abd-soft, NT, ND
Ext-no edema
Musculoskeletal-no cyanosis, clubbing
Skin-warm and dry, bilateral lower extremity hyperpigmentation
Neuro-grossly non-focal
Psych-calm, cooperative
Acute on chronic hypoxemic and hypercapnic respiratory failure
#COPD
#Probable obesity hypoventilation syndrome
#Probable PRISCILLA
Suspect secondary to anesthesia, obesity hypoventilation syndrome, with baseline COPD
Patient requires 2 to 3 L at baseline, currently back to baseline 3 L.
Continue BiPAP at bedtime, patient needs to follow-up with pulmonology for sleep study. Patient states he has a hard time tolerating BiPAP for more than 2 hours due to discomfort.
Left renal mass consistent with malignancy status post left nephrectomy 01/09/24
History of prostate cancer
Follow-up on pathology
VICKIE resolved.
Chronic HFpEF -stable. Continue Bumex.
Permanent afib since 2011 despite ablation in 2006. Eliquis resumed. Heart rate controlled at rest but goes up to 180 with activity according to nursing. [facility] text sent to cardiology to discuss. Continue Cardizem, metoprolol.
Constipation
Resolved with enema, continue laxatives
Hyperkalemia -resolved.
Hypotension -Resolved with holding losartan
CAD
Continue statin, metoprolol
Essential hypertension
Continue metoprolol, diltiazem
Cardiology recommends permanently discontinuing losartan
Hx Colon cancer status post right colectomy 11/09/2023
DM2 without hyperglycemia - Hemoglobin A1c 6.2. Diet controlled.
GERD
Continue PPI
Anxiety/depression
Continue SSRI, trazodone
Morbid obesity due to excess calories
Full code
Dispo -awaiting discharge to SNF. Will need better heart rate control prior to discharge.
Anticipated Discharge: Within 24 hours
Subjective/Interval History
-
Date of Service: January 15, 2024
Patient seen and examined. No complaints.
Objective Data
-
Vital Signs:
Vital Signs
Temp Pulse Resp BP Pulse Ox
98.2 F 93 16 114/73 98
01/15/24 11:27 01/15/24 11:27 01/15/24 11:27 01/15/24 11:27 01/15/24 11:27
I&O
01/14/24 01/15/24 01/16/24
06:59 06:59 06:59
Intake Total 2099 / 2099 1080 / 1080
Output Total 5 / 2245 2079 / 2079 50 / 50
Balance -145 / -145 -1000 / -1000 -50 / -50
Review of Systems
-
History Source: Patient
All other systems: Reviewed and negative
[2024-01-15] MEDS: LOPRESSOR 5 MG IV (13:46)
[2024-01-15 13:58] VITALS: BP 128/64
--- NOTE | 2024-01-15 14:27 | W.PN.PUL3 ---
Today's Communication / Plan
-
Continue with current care
Avoid sedatives
BiPAP if patient allows
Discharge planning
Outpatient pulmonary follow-up
Sign off
Assessment
-
Patient is a 73-year-old male with previous history of severe COPD, chronic hypoxic respiratory failure on O2, chronic A-fib, hypertension, diastolic heart failure presenting for elective nephrectomy for history of left renal mass. Underwent
procedure and postoperatively developed hypoxemia for which she was placed on BiPAP. ABG obtained indicating mild acute respiratory acidosis. He has evidence of obesity hypoventilation syndrome. He was told 2 years ago that he needed a sleep
study but did not follow-up. He is currently in PACU on BiPAP and tolerating device well.
Acute on chronic hypoxic/hypercarbic respiratory failure
Suspect PRISCILLA/OHS
Likely with postoperative atelectasis
Renal mass status post elective nephrectomy 01/09/24
Leukocytosis
Hyperglycemia
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
Prostate Cancer
Anxiety
HTN
Depression
Chronic Anemia
Severe COPD/bronchitis
Currently on Trelegy, 12/2023-FEV1 0.95L 29%, FVC 1.47L 33%, ratio 65.
08/31/20 from OSH- FEV1 32%, FVC 40%, ratio 63. TLC 53%, DLCO 60%
Moderately severe RLD
Diastolic-CHF
A-Fib
PAD s/p Aorto-biliac arteriogram, LLE arteriogram 11/30/20
Osteoporosis
Rheumatoid arthritis
Colon cancer s/p Robotic Right Colectomy
Hiatal hernia repair
L knee injections x3
R knee injection
Left Carpal tunnel release 10/27/22
Suspected PRISCILLA, supposed to obtain sleep study/did not follow up
Obesity BMI 38
Plan
From the respiratory perspective patient ready to be discharged
Postoperative hypoxemia is likely due to pulmonary insufficiency/atelectasis post procedure.
Incentive spirometry-encouraged
Aspiration precautions
Continue supplemental oxygen-attempt to wean-he is usually on 2 L with exertion, maintain pulse ox above 90%.
PRISCILLA suspected or obesity hypoventilation syndrome, was instructed to get sleep study 2 years prior but did not follow up
ABG showing pH 7.31/CO2 64 indicating-obesity hypoventilation syndrome
Continue BIPAP overnight as tolerated-encouraged- Pt not tolerating, says that he is claustrophobic/complains of discomfort.
We discussed need for OP testing and set up--this has been arranged as PSG/titration/immediate set up
has been refusing now-we encouraged him to continue using nightly
Avoid sedatives.
Can be discharged without BiPAP as patient will not use it. Discussed with case management. He understands the risks.
Prior history of lung disease is noted including severe COPD on Trelegy
Not bronchospastic on exam 01/14/2024
Prior PFTs reviewed indicating FEV1 of 29%
Resume home inhalers
He also has comorbid history of restrictive lung disease, diastolic heart failure
Prior ECHO results are reviewed indicating stable function with moderate pulmonary hypertension
This has not been repeated since 2021
Cont. diuretics per cardiology.
proBNP--1140
Cardiology following-correspondence reviewed
Weight loss measures recommended
Obesity likely contributing to respiratory symptoms
DVT prophylaxis recommended- restart AC per Urology.
GI prophylaxis-on pantoprazole
Reviewed with nursing
Will need outpatient pulmonary evaluation in our office at discharge, agree with discharge planning.
Sign off.

Diagnostic Data
Chest X-Ray: 01/09/24-Bibasilar opacities which may represent atelectasis or potentially postprocedural change. No pneumothorax.
CT Scan: CAP 12/19/23- 1. Post colonic resection. No bowel obstruction. As above, fat attenuation structure in anterior right abdomen with surrounding soft tissue attenuation probably old fat necrosis or chronic partial omental infarct related to
previous surgery.
2. Heterogeneously enhancing left renal mass measuring up to 6.5 cm in diameter, highly suspicious for renal cell carcinoma. There are some mildly enlarged retroperitoneal lymph nodes as above, metastatic involvement cannot be excluded.
3. Elevation left hemidiaphragm with adjacent atelectatic change. Trace left pleural effusion.
4. Dilation of the main pulmonary artery as seen previously, question pulmonary hypertension.
5. Mild irregularity of the hepatic capsular contour and enlarged left lobe, early change of cirrhosis is a differential consideration. No specific findings suggestive of portal hypertension.
6. Cholelithiasis.
11/05/21- 1. Focal area of thickening involving the transverse colon, likely corresponding to the patient's known transverse colon mass. No mesenteric lymphadenopathy is appreciated.
2. No evidence of hepatic metastasis.
3. Groundglass nodule at the right lung apex, measuring 7 mm in diameter. No additional lung nodules are appreciated. This nodule is indeterminate, and should be followed with imaging.
4. Prominence of the main pulmonary trunk, suggestive of pulmonary arterial hypertension in the correct clinical setting.
5. Mild cardiomegaly. Moderate coronary arterial calcification. Please correlate with symptoms of and risk factors for coronary artery disease, with further workup as clinically appropriate.
6. Cholelithiasis without evidence of acute cholecystitis.
Echo: 11/07/21-Normal left ventricular size, wall thickness and systolic function. No regional wall motion abnormalities are seen. LV ejection fraction is 50-55% by Chandler's method of discs. Diastolic function indeterminate due to atrial
fibrillation. Definity contrast was used. Mitral valve opens normally. Posterior mitral annular calcification. Trace mitral regurgitation. Mildly dilated left atrium. Tricuspid valve opens normally. Mild tricuspid regurgitation. Estimated pulmonary
artery pressure of 56 mmHg assuming a right atrial pressure of 8 mmHg.Severely dilated right atrium. Mildly enlarged right ventricular size. Normal right ventricular systolic function. Since echocardiogram November 2020 which was reviewed, there is
no significant change.
PFT's 12/2023-- FEV1 0.95L 29%, FVC 1.47L 33%, ratio 65.
08/31/20 from OSH- FEV1 32%, FVC 40%, ratio 63. TLC 53%, DLCO 60%
6MWT 12/06/23- 6 minute walk test performed and reconfirmed his exertional hypoxemia. Desaturated to 85% after [address] and titrated to 2 L and maintained an oxygen saturation of 93-94%. Exertional tachycardia noted at 150-160 bpm.
Reports and relevant images were personally reviewed.
Subjective Data
-
Date of Service:
Date of Service: January 15, 2024
Chief Complaint: Pulmonary Follow Up and Dyspnea Follow Up
Subjective:
No new complaints
Unable to tolerate BiPAP for longer period time due to discomfort
Review of Systems
General: Fever (n)
Cardiopulmonary: Dyspnea (n)
GI: Abdominal Pain (n) and Nausea (n)
Neuro: Headache (n)
Objective Data
Data Reviewed
Vital Signs / I&O / Oxygen:
Vital Signs
Temp Pulse Resp BP Pulse Ox
98.2 F 139 16 128/64 98
01/15/24 11:27 01/15/24 13:46 01/15/24 11:27 01/15/24 13:58 01/15/24 11:27
Intake and Output
01/14/24 01/15/24 01/16/24
06:59 06:59 06:59
Intake Total 2099 / 2099 1080 / 1080
Output Total 2245 / 2245 2079 / 2079 50 / 50
Balance -145 / -145 -1000 / -1000 -50 / -50
SaO2 98
Nasal Cannula flow liters per 3
minute
Physical Exam
General: Respiratory Distress (n), Comfortable and Other (NAD)
HEENT: Normocephalic, Anicteric and Moist Mucous Membranes
Cardiovascular: Regular Rhythm and Peripheral Edema (discoloration noted)
Respiratory: Clear and Non-Labored Respirations
GI: Soft, Non Distended and Non Tender
Neurology: Awake, Alert and No Motor Deficits
Skin: Warm, Dry, Good Color and Cyanosis (n)
Labs/Micro/Reports
Lab Data
01/14/24 05:40
01/14/24 05:40
--- NOTE | 2024-01-15 15:08 | W.PN.CARDCBS ---
Addendum entered and electronically signed by Kirstie Phan MD 01/15/24 16:14:
I saw and examined the patient.
The Dairy Husbandry Worker's note was reviewed and I agree with the note.
Comment: Exam is stable. Heart irregularly irregular. Lungs clear.
Patient tells me at home with activity his heart rate does go up sometimes to the 170s. He feels like it is more noticeable now because he remains in some pain for which he is going to take Tylenol. He feels that he has not been eating and
drinking or sleeping which is also contributing. We will rearrange medications so that Toprol is in the morning and diltiazem is in the p.m. If her heart rates are not controlled by the morning increase diltiazem dose.
Renal function stable. Continue with good hydration. Continue to follow telemetry..
Original Note:
Today's Communication / Plan
-
Change Toprol XL to AM dosing
Impression / Plan
-
Primary Golf Club Head Inspector: Dr. Rodrigez
Impression:
Admitted with left renal mass s/p robotic assisted left nephrectomy 01/09/24
Chronic HFpEF
Pulmonary hypertension
COPD on chronic oxygen dependence
Permanent atrial fibrillation
Chronic OAC with eliquis
HTN
HLD
Chronic anemia
Obesity
history of colon cancer s/p colectomy 10/2021
Depression/anxiety
ECHO 10/2021: Definity contrast was used, EF 50 to 55%, no regional wall motion abnormalities, posterior MAC, trace MR, mildly dilated LA, mild TR, PAP 56 mmHg, severely dilated right atrium, mildly enlarged RV size
Echo December 2023, EF 55 to 60%, mild LVH, mild TR with PA pressure 39
Plan:
-Called back to see patient on 01/15/24 for Afib with RVR, patient was ambulating when HR increased to 150s with activity. Patient reports palpitations, but no chest pain. Patient with known permanent Afib and HRs generally controlled with Toprol XL
100 mg HS and Cardizem CD 120 mg HS. Patient reports that dosing of AV jessie blockers was changed to HS because of lightheadedness, but lightheadedness was happening while sitting still and was not associated with change in position.
-HR improved after Lopressor 5 mg IV x1 ordered by me 01/15/24
-Patient agreeable to changing Toprol XL to 100 mg in AM and will give the dose now instead of tonight.
-Will keep Cardizem CD 120 mg HS.
-Outpatient dose of Eliquis 5 mg BID has been continued (age 73, Cre 1.2 and wt 123.86 kg)
-Outpatient dose of losartan 25 mg daily was stopped due to VICKIE.
-Outpatient dose of Bumex 2 mg PO BID has been continued.
Progress Note - Golf Club Head Inspector
Subjective
Date of Service: January 15, 2024
He is in pain. Has palpitations when HR faster then 150
Objective
Labs:
01/14/24 05:40
01/14/24 05:40
Labs
Hgb 11.6 g/dL (13.0-18.0) L 01/14/24 05:40
Hct 36.2 % (39.0-52.0) L 01/14/24 05:40
Plt Count 203 10^3/uL (130-400) 01/14/24 05:40
Sodium 135 mmol/L (135-145) 01/14/24 05:40
Potassium 4.8 mmol/L (3.5-5.1) 01/14/24 05:40
BUN 32 mg/dl (9-20) H 01/14/24 05:40
Creatinine 1.2 mg/dL (0.7-1.3) 01/14/24 05:40
Glucose 148 mg/dl (70-99) H 01/14/24 05:40
Vital Signs and I&O:
Vital Signs
Temp Pulse Resp BP Pulse Ox
98.2 F 139 16 128/64 98
01/15/24 11:27 01/15/24 13:46 01/15/24 11:27 01/15/24 13:58 01/15/24 11:27
Vital Signs
Temp Pulse Resp BP Pulse Ox
98.2 F 139 16 128/64 98
01/15/24 11:27 01/15/24 13:46 01/15/24 11:27 01/15/24 13:58 01/15/24 11:27
Intake & Output
01/13/24 01/14/24 01/15/24 01/16/24
06:59 06:59 06:59 06:59
Intake Total 2099 / 2099 1080 / 1080
Output Total 1735 / 1735 2245 / 2245 2080 / 2080 50 / 50
Balance -1735 / -1735 -145 / -145 -1000 / -1000 -50 / -50
Physical Exam
Physical Exam
General: AAOX3
HEENT: MMM
Heart: Afib RVR on tele
Lungs: No audible wheeze
Abd: ND
Ext: No edema B/L LE
Neuro: nonfocal
--- NOTE | 2024-01-15 15:30 | W.PN.URO.CBU ---
Today's Communication / Plan
-
awaiting SNF transfer
will remove JAXON drain tomorrow
Assessment / Plan
-
stable urologically
Diagnosis
-
Date of Service: January 15, 2024
-
Post Op Day:
Patient Diagnosis: Left Renal Cell Carcinoma s/p Hand-assisted laparoscopic radical nephrectomy
Post Op Day: 6
Objective
-
Vital Signs
Temp Pulse Resp BP Pulse Ox
98.2 F 139 16 128/64 98
01/15/24 11:27 01/15/24 13:46 01/15/24 11:27 01/15/24 13:58 01/15/24 11:27
Intake and Output
01/14/24 01/15/24 01/16/24
06:59 06:59 06:59
Intake Total 2099 1080 / 1080
Output Total 2245 / 2245 2080 / 2080 50 / 50
Balance -145 / -145 -1000 / -1000 -50 / -50
Intake:
Oral fluids 2099 1080 / 1080
Output:
Drain Output (Total) 445 / 445 405 / 405 50 / 50
Left Lower Abdomen Sharif- 445 / 445 405 / 405 50 / 50
Fowler
Urine, Voided 1800 / 1800 1675 / 1675
Other:
Number of approximated MODERATE 1 1
amounts of urine
How many times incontinent 1
MODERATE amount urine
How many times incontinent 1
SATURATED amount urine
Laboratory Results
01/14/24 05:40
01/14/24 05:40
Physical Exam
-
General - well developed, well nourished, no acute distress
Chest - clear bilaterally
Abdomen - soft, non-tender, positive bowel sounds, no CVAT, no incisional pain or distention
Genitalia - normal
Rectal - normal
Skin - warm & dry with no rash
Neuro - AOx3, no motor deficits
Extremities - no clubbing, no cyanosis, no edema
Incision - clean, dry
Dressing - clean, dry, intact
--- NOTE | 2024-01-15 16:24 | CM ---
CM reviewed chart
CM reviewed Availity multiples times throoughout day and SNF auth remains pending
Call from [facility] and they will attempt to reach out to [employer] as mishel
Update to brother
Discharge Disposition- [facility] in [place] pending [employer] auth
[2024-01-15] MEDS: TOPROL XL 100 MG PO (16:58)
[2024-01-15] MEDS: LIPITOR 20 MG PO (16:59)
[2024-01-15] MEDS: CARDIZEM CD 120 MG PO (16:59)
[2024-01-15] MEDS: COZAAR 25 MG PO (17:03)
[2024-01-15 19:29] VITALS: BP 121/70
[2024-01-15] MEDS: MELATONIN 10 MG PO (21:21)
[2024-01-15] MEDS: DESYREL 150 MG PO (21:21)
[2024-01-15 23:57] VITALS: BP 112/62
[2024-01-16] MEDS: TYLENOL 650 MG PO (04:13)
[2024-01-16 04:40] VITALS: BP 114/65
--- NOTE | 2024-01-16 05:52 | DOWNTIME ---
There was a [employer] Client Meat Lugger Downtime on 01/16/2024 from 0100 to 01/16/2024 at 0350. Downtime documentation of patient's care, including medication administrations, has been reconciled in the electronic record per guidelines. Refer to the
patient's paper chart under the miscellaneous tab to see printed paper medication records and downtime forms.
[2024-01-16 06:00] VITALS: BMI 37.7
[2024-01-16 07:45] VITALS: BP 118/70
[2024-01-16] MEDS: SPIRIVA RESPIMAT 2.5 MCG 2 PUFF INH (08:01)
[2024-01-16] MEDS: SYMBICORT 80/4.5 MCG INHALER 2 PUFF INH (08:02)
[2024-01-16] MEDS: SENOKOT-S 2 TABLET PO (09:38)
[2024-01-16] MEDS: PROTONIX 40 MG PO (09:39)
[2024-01-16] MEDS: LEXAPRO 5 MG PO (09:39)
[2024-01-16] MEDS: COLACE 100 MG PO (09:40)
[2024-01-16] MEDS: TOPROL XL 100 MG PO (09:40)
[2024-01-16] MEDS: MIRALAX 17 GRAMS PO (09:40)
[2024-01-16] MEDS: ELIQUIS 5 MG PO (09:40)
--- NOTE | 2024-01-16 09:42 | W.PN.URO.CBU ---
Today's Communication / Plan
-
discharge/transfer when medically fit
Assessment / Plan
-
stable urologically
Diagnosis
-
Date of Service: January 16, 2024
-
Post Op Day:
Patient Diagnosis: Left Renal Cell Carcinoma s/p Hand-assisted laparoscopic radical nephrectomy
Post Op Day: 7
Subjective
-
'feeling better'
Objective
-
Vital Signs
Temp Pulse Resp BP Pulse Ox
98.4 F 85 18 118/70 96
01/16/24 07:45 01/16/24 08:06 01/16/24 08:06 01/16/24 07:45 01/16/24 08:06
Intake and Output
01/15/24 01/16/24 01/17/24
06:59 06:59 06:59
Intake Total 1080 / 1080 1410 / 1410
Output Total 2080 / 2080 2242 / 2242
Balance -1000 / -1000 -832 / -832
Intake:
Oral fluids 1080 / 1080 1410 / 1410
Output:
Drain Output (Total) 405 / 405 602 / 602
Left Lower Abdomen Sharif- 405 / 405 602 / 602
Fowler
Urine, Voided 1675 / 1675 1640 / 1640
Other:
Number of approximated MODERATE 1
amounts of urine
How many times incontinent 1
MODERATE amount urine
Laboratory Results
01/14/24 05:40
01/14/24 05:40
Physical Exam
-
General - well developed, well nourished, no acute distress
Abdomen -JAXON - removed; an removed then steristrips applied
[2024-01-16] MEDS: DUPHALAC/CHRONULAC 20 GRAMS PO (09:53)
[2024-01-16] MEDS: BUMEX 2 MG PO (09:53)
--- NOTE | 2024-01-16 10:39 | W.PN.HOSP.TC ---
Today's Communication/Plan
-
Check orthostatics
Check heart rate with activity
Assessment / Plan
Assessment / Plan
Gen-AAOx3, NAD, obese
HEENT-NC, AT, anicteric, clear oral mm
Neck-supple
CV-reg, no M, +S1/S2
Lungs-clear B/L
Abd-soft, NT, ND
Ext-no edema
Musculoskeletal-no cyanosis, clubbing
Skin-warm and dry, bilateral lower extremity hyperpigmentation
Neuro-grossly non-focal
Psych-calm, cooperative
Acute on chronic hypoxemic and hypercapnic respiratory failure
#COPD
#Probable obesity hypoventilation syndrome
#Probable PRISCILLA
Suspect secondary to anesthesia, obesity hypoventilation syndrome, with baseline COPD
Patient requires 2 to 3 L at baseline, currently back to baseline 3 L.
Continue BiPAP at bedtime, patient needs to follow-up with pulmonology for sleep study. Patient states he has a hard time tolerating BiPAP for more than 2 hours due to discomfort.
Left renal mass consistent with malignancy status post left nephrectomy 01/09/24
History of prostate cancer
Follow-up on pathology
VICKIE resolved.
Chronic HFpEF -stable. Continue Bumex.
Permanent afib since 2011 despite ablation in 2006. Eliquis resumed. Heart rate controlled at rest but goes up to 180 with activity according to nursing. Cardiology has adjusted meds such to have metoprolol was given in the morning, Cardizem in
the evening. Check orthostatics, discussed with nursing. If heart rate still goes up with activity may need to increase Cardizem dose.
Constipation
Resolved with enema, continue laxatives
Hyperkalemia -resolved.
Hypotension -Resolved with holding losartan
CAD
Continue statin, metoprolol
Essential hypertension
Continue metoprolol, diltiazem
Cardiology recommends permanently discontinuing losartan
Hx Colon cancer status post right colectomy 11/09/2023
DM2 without hyperglycemia - Hemoglobin A1c 6.2. Diet controlled.
GERD
Continue PPI
Anxiety/depression
Continue SSRI, trazodone
Morbid obesity due to excess calories
Full code
Dispo -awaiting discharge to SNF. Will need better heart rate control prior to discharge.
Anticipated Discharge: Within 24 hours
Subjective/Interval History
-
Date of Service: January 16, 2024
Patient seen and examined. Currently no symptoms.
Objective Data
-
Vital Signs:
Vital Signs
Temp Pulse Resp BP Pulse Ox
98.4 F 85 18 118/70 96
01/16/24 07:45 01/16/24 08:06 01/16/24 08:06 01/16/24 07:45 01/16/24 08:06
I&O
01/15/24 01/16/24 01/17/24
06:59 06:59 06:59
Intake Total 1080 / 1080 1410 / 1410
Output Total 0 / 0 2242 / 2242
Balance -1000 / -1000 -832 / -832
Review of Systems
-
History Source: Patient
All other systems: Reviewed and negative
--- NOTE | 2024-01-16 11:19 | W.PN.CARDCBS ---
Today's Communication / Plan
-
Okay for transfer to rehab from cardiac standpoint
See below for medication recommendations
Impression / Plan
-
Primary In Store Marketing Representative: Dr. Rodrigez
Impression:
Admitted with left renal mass s/p robotic assisted left nephrectomy 01/09/24
Chronic HFpEF
Pulmonary hypertension
COPD on chronic oxygen dependence
Permanent atrial fibrillation
Chronic OAC with eliquis
HTN
HLD
Chronic anemia
Obesity
history of colon cancer s/p colectomy 10/2021
Depression/anxiety
ECHO 10/2021: Definity contrast was used, EF 50 to 55%, no regional wall motion abnormalities, posterior MAC, trace MR, mildly dilated LA, mild TR, PAP 56 mmHg, severely dilated right atrium, mildly enlarged RV size
Echo December 2023, EF 55 to 60%, mild LVH, mild TR with PA pressure 39
Plan:
He appears stable from a cardiac standpoint.
Creatinine is now 1.2. Given weight and age, apixaban remains 5 mg twice daily regardless.
.
Still mildly volume overloaded at this point I would simply continue bumetanide 2 mg twice daily.
.
He is back on apixaban.
Rate control in atrial fibrillation is now improved.
From my standpoint okay for transfer to rehab.
Recommended cardiac medications at discharge:
Diltiazem ER 120 mg in the evening
Atorvastatin 20 mg in the evening
Losartan 25 mg in the evening
Potassium 20 mill equivalents twice daily
Apixaban 5 mg twice daily
Metoprolol ER 100 mg daily
We have arranged for cardiac follow-up on February 05.
Progress Note - In Store Marketing Representative
Subjective
Date of Service: January 16, 2024:
73-year-old man with left nephrectomy January 08 for renal mass, history of permanent A-fib and HFpEF, COPD on home oxygen, now with rapid ventricular response to atrial fibrillation
PMH: As above
Allergies: Penicillin
Outpatient cardiac meds: Atorvastatin 20 mg daily, Bumex 2 mg twice daily, diltiazem ER 120 mg a day, Eliquis 5 mg twice daily, losartan 25 mg a day, metoprolol ER 100 mg a day, potassium 20 mill equivalents twice daily
Current medications: Diltiazem ER 120 mg a day, atorvastatin 20 mg a day, Lexapro 5 mg a day, losartan 25 nightly, pantoprazole 40 mg a day, potassium 20 mill equivalents twice daily, trazodone 150 mg at bedtime, Symbicort, Spiriva, bumetanide 2 mg
twice daily, apixaban 5 twice daily, metoprolol ER 100 mg daily
118/70, pulse 85, respiratory rate 18, weight is 123.9 kg as of yesterday, was 126.8 kg, intake and output -780 mL, few crackles in bases neck veins okay, some edema, bumetanide at home is 2 mg twice daily, abdomen benign, irregular rate and rhythm,
rate is controlled
No labs today
Objective
Labs:
01/14/24 05:40
01/14/24 05:40
Labs
Hgb 11.6 g/dL (13.0-18.0) L 01/14/24 05:40
Hct 36.2 % (39.0-52.0) L 01/14/24 05:40
Plt Count 203 10^3/uL (130-400) 01/14/24 05:40
Sodium 135 mmol/L (135-145) 01/14/24 05:40
Potassium 4.8 mmol/L (3.5-5.1) 01/14/24 05:40
BUN 32 mg/dl (9-20) H 01/14/24 05:40
Creatinine 1.2 mg/dL (0.7-1.3) 01/14/24 05:40
Glucose 148 mg/dl (70-99) H 01/14/24 05:40
Vital Signs and I&O:
Vital Signs
Temp Pulse Resp BP Pulse Ox
36.9 C 85 18 118/70 96
01/16/24 07:45 01/16/24 08:06 01/16/24 08:06 01/16/24 07:45 01/16/24 08:06
Vital Signs
Temp Pulse Resp BP Pulse Ox
36.9 C 85 18 118/70 96
01/16/24 07:45 01/16/24 08:06 01/16/24 08:06 01/16/24 07:45 01/16/24 08:06
Intake & Output
01/14/24 01/15/24 01/16/24 01/17/24
07:59 07:59 07:59 07:59
Intake Total 2099 / 2099 1080 / 1080 1410 / 1410
Output Total 2245 / 2245 2079 / 2079 224 / 2241
Balance -145 / -145 -1000 / -1000 -832 / -832
Physical Exam
Physical Exam
See above
[2024-01-16 11:30] VITALS: BP 109/88
--- NOTE | 2024-01-16 11:46 | CM ---
Addendum entered by Cira Pal 01/16/24 12:49:
Call from SNF admissions- requesting large bipap mask be sent with pt
Confirmed with respiratory- mask will be provided to pt
Addendum entered by Cira Pal 01/16/24 12:29:
1330 transport
Original Note:
CM reviewed chart and pt with Dr Bosch
[employer] auth received for SNF
Bed confirmed with admissions/Laurita at [facility]
Bipap info and settings provided to her via [facility]
JAXON drain removed
IMM verbally completed with pt bedside
Transport forms completed as well
Update to brother/Kevin
[employer] SNF auth # [id number]
7 days 01/15-01/21 (LCD/NRD)
Tg (p) [phone] (f) [phone]
Discharge Disposition- [facility] via BLS
Phone- [phone] unit 1 Fax- [phone]
--- NOTE | 2024-01-16 12:05 | W.DS.TRANS ---
DC Summary - Custom Framing Specialist
-
Discharge Instructions:
Discharge Diagnosis/Procedures Left Kidney cancer s/p left nephrectomy
Diet No restrictions
Activity No strenuous activity
Driving Restrictions No driving for 1 week
Bathing Restrictions OK to Shower
Instructions:
Stand-Alone Forms:
Changes to Home Medications: No
Discharge Medications:
DC Medications w/original date entered in [facility]
albuterol sulfate 90 mcg/actuation aerosol inhaler 2 puff inhalation R Q6 PRN sob/wheezing 11/24/20
escitalopram oxalate 5 mg tablet 5 mg PO DAILY Mental Health/Anxiety 11/24/20
fluticasone fur. 100 mcg-umeclid 62.5 mcg-vilant 25 mcg inhalat.powder (Trelegy Ellipta) 1 puff inhalation R DAILY Lung/breathing issues 11/24/20
metoprolol succinate 100 mg tablet,extended release 24 hr 100 mg PO QPM Heart disease/condition 11/24/20
atorvastatin 20 mg tablet 20 mg PO QPM High cholesterol 11/01/21
losartan 25 mg tablet 25 mg PO QPM Blood pressure 11/01/21
trazodone 100 mg tablet 150 mg PO HS Mental Health/Anxiety 11/01/21
bumetanide 2 mg tablet 2 mg PO BID@0800,1600 #60 tabs 11/14/21
pantoprazole 40 mg tablet,delayed release 40 mg PO DAILY #30 tabs 11/14/21
potassium chloride 20 mEq tablet,extended release(part/cryst) (Klor-Con M) 20 meq PO BID #30 tabs 11/14/21
Cbd Gummies 1 gummy PO PRN PRN pain 01/07/24
acetaminophen 325 mg tablet (Tylenol) 650 mg PO Q4H PRN pain 01/07/24
apixaban 5 mg tablet (Eliquis) 5 mg PO BID Blood Clot Prevention/Tx 01/07/24
melatonin 10 mg tablet 10 mg PO HS Sleep 01/07/24
diltiazem HCl 120 mg capsule,extended release 24 hr 120 mg PO QPM Heart Disease/Condition 01/08/24
docusate sodium 100 mg capsule (Colace) 100 mg PO BID Constipation 01/08/24
tramadol 50 mg tablet 50 mg PO TID PRN severe pain #10 tabs 01/09/24
Home Medication Changes
Pending Results: No
[2024-01-16 12:18] VITALS: BP 109/88; BP 119/67; BP 126/60; PULSE 95; PULSE 96
== END 2024-01-16 14:06 | DRG 656 ==
LOC: 3 WEST ACU 06:01
PROVIDERS: Anesthesiology; Hospitalist; Surgery; ADMITTING PHYSICIAN Specialist; CONSULT PHYSICIAN Internal Medicine; FAMILY PHYSICIAN Family Medicine; OTHER PHYSICIAN Family Medicine
PROC: 5A09357 Assistance with Respiratory Ventilation, Less than 24 Consecutive Hours, Continuous Positive Airway Pressure (ICD-10-PCS; 2024-01-09)
PROC: 0TT14ZG Resection of Left Kidney, Percutaneous Endoscopic Approach, Hand-Assisted (ICD-10-PCS; 2024-01-09)
DX: C64.2 Malignant neoplasm of left kidney, except renal pelvis (principal); J96.22 Acute and chronic respiratory failure with hypercapnia; I13.0 Hypertensive heart and chronic kidney disease with heart failure and stage 1 through stage 4 chronic kidney disease, or unspecified chronic kidney disease; I50.32 Chronic diastolic (congestive) heart failure; I42.8 Other cardiomyopathies; I48.21 Permanent atrial fibrillation; E66.2 Morbid (severe) obesity with alveolar hypoventilation; J98.11 Atelectasis; N17.9 Acute kidney failure, unspecified; J44.9 Chronic obstructive pulmonary disease, unspecified; I25.10 Atherosclerotic heart disease of native coronary artery without angina pectoris; N18.2 Chronic kidney disease, stage 2 (mild); K21.9 Gastro-esophageal reflux disease without esophagitis; D64.9 Anemia, unspecified; D72.829 Elevated white blood cell count, unspecified; M81.0 Age-related osteoporosis without current pathological fracture; M06.9 Rheumatoid arthritis, unspecified; F32.A Depression, unspecified; F41.9 Anxiety disorder, unspecified; E11.65 Type 2 diabetes mellitus with hyperglycemia; I27.20 Pulmonary hypertension, unspecified; E87.5 Hyperkalemia; E11.22 Type 2 diabetes mellitus with diabetic chronic kidney disease; I95.9 Hypotension, unspecified; K59.00 Constipation, unspecified; Z60.2 Problems related to living alone; Z88.0 Allergy status to penicillin; Z85.038 Personal history of other malignant neoplasm of large intestine; Z90.49 Acquired absence of other specified parts of digestive tract; Z87.891 Personal history of nicotine dependence; Z99.81 Dependence on supplemental oxygen; Z79.01 Long term (current) use of anticoagulants; Z68.38 Body mass index [BMI] 38.0-38.9, adult; Z85.46 Personal history of malignant neoplasm of prostate
CPT/HCPCS: 88307; 36600; 71045; 80048; 80053; 82150; 82805; 82962; 83036; 83605; 83735; 83880; 84100; 85014; 85018; 85025; 85027; 86850; 86900; 86901; 93005; 93307; 94640; 94660; 97116; 97163; 97166; 97535; Q9957